=== PATIENT | male | born 1960 | race Caucasian/White ===

== ENCOUNTER 2020-12-26 15:28 | Emergency (ER) | payer MEDICARE, SELFPAY ==
--- NOTE | ~2020-12-26 | US_ITS ---
EXAMINATION: US venous doppler [facility] DATE: 12/26/2020 16:26 INDICATION: Left lower limb pain TECHNIQUE: Nichols scale images without and with compression and Doppler images of the left lower extrem ity veins were obtained. COMPARISON: None FINDINGS: The left common femoral vein, profunda femoral vein, femoral vein, popliteal vein, peroneal trunk, and posterior tibial veins are patent. IMPRESSION: 1. Patent left lower extremity veins. No evidence of deep venous thrombosis. Reviewed, dictated and finalized at location B.
[2020-12-26 15:58] VITALS: BP 169/70; PULSE 83; RESP 16; TEMP 36.3; O2SAT 100
[2020-12-26 20:00] VITALS: BP 170/76; PULSE 95; RESP 16; TEMP 36.6; O2SAT 100
--- NOTE | 2020-12-26 21:22 | ED.LOWEXIN ---
HPI - Extremity Injury (Lower) General Chief Complaint: Extremity Injury, Lower Stated Complaint: Left Leg Circulation Issues Time Seen by Provider: 12/26/20 21:00 History of Present Illness HPI Narrative: 60 yo w/ h/o PAD s/p multiple revascularization procedures and right AKA presents with Leg pain. He reports severe aching pain in the left foot and calf that comes on predictably with activity. It will then begin to radiate into the thigh. This has been going on for weeks. Most recent surgery was in 2014. He has not followed up with his surgeon and does not have a PCP. Related Data Allergies Allergy/AdvReac Type Severity Reaction Status Date / Time No Known Allergies Allergy Unknown Unverified 10/25/18 12:39 Review of Systems Review of Systems: All systems reviewed & are unremarkable except as noted in HPI and below Constitutional: Constitutional: Denies chills and Denies fever(s) ENT: Denies dizziness Cardiovascular: Cardiovascular: Denies chest pain Respiratory: Respiratory: Denies dyspnea Gastrointestinal: Gastrointestinal: Denies abdominal pain Musculoskeletal: Musculoskeletal: Denies back pain Integumentary/Breasts: Skin/Breast: Denies skin ulcer Neurologic: Denies dizziness and Denies numbness PMFSH Past Medical History Medical History (Updated 12/27/20 @ 03:28 by Gaston Angel MD) HTN (hypertension) (07/24/12) Leg pain (01/29/14) Peripheral vascular disease (07/24/12) Surgical History Surgical History (Updated 12/27/20 @ 03:29 by Gaston Angel MD) History of revascularization procedure of lower extremity Social History Social History Smoking status: Former smoker Exam Const: General: no acute distress, alert and ill appearing chronically Nutritional Appearance: thin Orientation/consciousness: patient oriented x3 HENMT: Head: normal to inspection Resp: Effort & Inspection: normal respiratory effort Auscultation: clear to auscultation bilaterally Cardio: Rate: regular rate Rhythm: regular rhythm Other: Faintly palpable left DP. Clear on doppler. GI: GI Palp: Yes Soft to palpation and No Tenderness to palpation present (GI) Skin: Other: Mild discoloration of foot and ankle Neuro: General: patient oriented x3, moves all extremities, no focal motor deficits and CN's II-XI intact bilaterally Speech: normal speech Extrem: Other: Right AKA. Diffuse tenderness without swelling or deformity Course Vital Signs Vital signs: Vital Signs Temperature 36.3 C L 12/26/20 15:58 Pulse Rate 83 12/26/20 15:58 Respiratory Rate 16 12/26/20 15:58 Blood Pressure 169/70 H 12/26/20 15:58 Pulse Oximetry 100 12/26/20 15:58 Temperature 36.6 C 12/26/20 20:00 Pulse Rate 95 12/26/20 20:00 Respiratory Rate 16 12/26/20 20:00 Blood Pressure 170/76 H 12/26/20 20:00 Pulse Oximetry 100 12/26/20 20:00 MDM - Extremity Injury (Lower) MDM Narrative Medical decision making narrative: DDx: Critical ischemia, claudication, cellulitis, DVT, other The foot is warm and has pulses, so this does not seem to be critical ischemia. He does give a history consistent with severe claudication and will need vascular follow-up Medical Records Attestation: I reviewed the patient's medical records. Imaging Data Radiologist's impression: ITS Impressions Venous Doppler Study 12/26/20 16:31 IMPRESSION: 1. Patent left lower extremity veins. No evidence of deep venous thrombosis. Discharge Plan Discharge Clinical Impression: Claudication of right lower extremity Patient Disposition: Home, Self-Care Condition: Stable Instructions: Peripheral Vascular Disease (ED) Additional Instructions: Make an appointment to follow-up with your vascular surgeon Follow-up/Referrals: PHYSICIAN,ROBOTICS SPECIALIST [Primary Care Provider] -
== END 2020-12-26 21:30 | disposition home or self-care (01) ==
PROVIDERS: Emergency Provider Emergency Medicine
DX: I73.9 Peripheral vascular disease, unspecified (principal); Z89.611 Acquired absence of right leg above knee; I10 Essential (primary) hypertension; Z87.891 Personal history of nicotine dependence
CPT/HCPCS: 93971; 99284

== ENCOUNTER 2021-02-23 19:41 | Inpatient (IN) | payer MEDICARE, MEDICAID, SELFPAY ==
--- NOTE | ~2021-02-23 | CT_ITS ---
EXAMINATION: CT abdomen pelvis wo con DATE: 02/23/2021 22:54 INDICATION: Intractable nausea and vomiting. TECHNIQUE: Computed tomography (CT) of the abdomen and pelvis was performed without intravenous contr ast. Automated exposure control and iterative reconstruction technique were employed. The dose-length product was 732.47 mGy-cm. COMPARISON: None FINDINGS: Respiratory motion at the lung bases which limits evaluation of fine pulmonary parenchymal detail. Ca lcified left lower lobe nodule and splenic calcification consistent with old granulomatous disease. S mall region of atelectasis at the left lung base. Heart size is normal. Atherosclerotic coronary sachin ry calcifications and possible coronary artery stenting. Additional prominent motion artifact through out the abdomen and at the proximal thighs also limiting evaluation in these regions. Liver, gallblad bren, pancreas, bilateral adrenal glands and kidneys are normal. Normal appendix. No abnormal bowel wa ll thickening or obstruction. Prominent wall thickening at the bladder which is decompressed around a Garrett catheter. Degree of wall thickening is greater than expected simply due to decompressed state suggests possibility of cystitis either acute or chronic. No free intraperitoneal gas or fluid. There is extensive calcified atherosclerosis of the aorta and many of the other arteries. No pathologicall y enlarged abdominal or pelvic lymphadenopathy. Small fat-containing right inguinal hernia. Mild to m oderate scattered degenerative skeletal changes in the spine and at the bilateral hips. IMPRESSION: 1. Study moderately limited by extensive motion artifact in the lower chest, throughout the abdomen a nd the proximal thighs. 2. Prominent wall thickening in the bladder which is decompressed around a Garrett catheter which could be due to cystitis either acute or chronic. No other acute intra-abdominal/pelvic process identified . Reviewed, dictated and finalized at location A. IMPRESSION: 1. Study moderately limited by extensive motion artifact in the lower chest, th roughout the abdomen and the proximal thighs. 2. Prominent wall thickening in the bladder which is decompressed around a Fole y catheter which could be due to cystitis either acute or chronic. No other acu te intra-abdominal/pelvic process identified.
--- NOTE | ~2021-02-23 | XR_ITS ---
XR chest 1V portable 03/01/2021 05:24 Indication: Pneumonia Procedure: AP portable chest Comparison: Comparison to multiple prior studies sequentially, with oldest reviewed study dated 03/09. Findings: Subtle improving diffuse bilateral airspace disease compared with 02/25/2021. Heart size is normal. There is atherosclerosis. Small pleural effusions. No pneumothorax. Impression: 1: Improving diffuse bilateral airspace disease, consistent with pneumonia. Reviewed, dictated and finalized at location A. Impression: 1: Improving diffuse bilateral airspace disease, consistent with pneumonia.
--- NOTE | ~2021-02-23 | CT_ITS ---
EXAMINATION: CT brain wo con DATE: 02/23/2021 20:34 INDICATION: Altered mental status TECHNIQUE: Computed tomography (CT) of the head was performed without intravenous contrast. Sagittal and coronal reconstructions were performed. The mA was adjusted according to patient size. Iterative reconstruction technique was employed. The dose-length product was 605.33 mGy-cm. COMPARISON: None FINDINGS: Small region of encephalomalacia along the anteroinferior left frontal lobe which could represent seq uela of old infarct or trauma. No acute intracranial hemorrhage, acute infarction or abnormal extra a xial fluid collection. Symmetric prominence of the sulci consistent with mild age-appropriate diffuse cerebral volume loss. Ventricles are normal and symmetric. No mass/mass effect. Intracranial calcifi ed cerebral atherosclerosis is noted. The orbits, paranasal sinuses and mastoid air cells are normal. IMPRESSION: 1. No acute intracranial process. 2. Small region of encephalomalacia in the anteroinferior left frontal lobe which could represent seq uela of old infarct or trauma. Reviewed, dictated and finalized at location A. IMPRESSION: 1. No acute intracranial process. 2. Small region of encephalomalacia in the anteroinferior left frontal lobe whi ch could represent sequela of old infarct or trauma.
--- NOTE | ~2021-02-23 | XR_ITS ---
EXAMINATION: XR chest 1V portable EXAM DATE: 02/25/2021 05:16 INDICATION: Cough. TECHNIQUE: Portable AP frontal chest x-ray was obtained. Comparison is made to prior examination from 02/24/2021. FINDINGS: Significant progression in the now diffuse indistinct reticulation, worsening edema or pneu monia. Please clinically correlate. Small left pleural effusion. The cardiomediastinal silhouette is prominent but magnified on this AP technique. There is no pneumothorax suspected. There is aortic art eriosclerosis. There are bony degenerative changes. IMPRESSION: Progression of now diffuse abnormal edema or pneumonia. Reviewed, dictated and finalized at location A.
--- NOTE | ~2021-02-23 | XR_ITS ---
EXAMINATION: XR chest 1V portable EXAM DATE: 02/24/2021 05:52 INDICATION: New oxygen requirement TECHNIQUE: Portable AP frontal chest x-ray was obtained. Comparison is made to prior examination from 02/23/2021. FINDINGS: There is indistinct reticulation which may indicate pulmonary edema. Surgical changes from left upper lobectomy. No confluent consolidation, pneumothorax or pleural effusion suspected. There i s aortic arteriosclerosis. Mild cardiomegaly. There are no osseous abnormalities identified. IMPRESSION: Indistinct bilateral reticulation, appearance most consistent with mild pulmonary edema. Clinical correlation. Reviewed, dictated and finalized at location A.
--- NOTE | ~2021-02-23 | CT_ITS ---
EXAMINATION: CTA LE LT EXAM DATE: 02/28/2021 18:46 INDICATION: severe peripheral arterial disease. TECHNIQUE: Spiral CTA LE LT was performed following intravenous injection of 100 mL Omnipaque 350. A xial, coronal and sagittal images were reviewed. The dose-length product (DLP) for this examination was 497.55 mGy-cm. The exposure was tailored according to patient size (auto mA exposure control), a nd iterative reconstruction (ASIR) was used as additional dose reduction technique. There is no prio r study for comparison. FINDINGS: The left external iliac artery is normal through the inguinal canal, where there is severe atherosclerosis just proximal to a femoropopliteal bypass. The [place] superficial femoral artery is o ccluded. The bypass graft is patent. Bypass graft connects to popliteal artery which shows short segm ent moderate stenosis just above the tibioperoneal trunk. There is scattered arterial sclerosis of al l 3 calf arteries, but anterior tibial and posterior tibial to have patency to the ankle. There is edema of the left lower extremity subcutaneous fat. No abscess or knee joint effusion. Garrett catheter within the bladder. Bladder wall thickening, could indicate acute or chronic cystitis. Ther e is left inguinal lymphadenopathy, with the largest lymph node measuring 2.2 x 1.2 cm, probably reac tive. IMPRESSION: 1. Patent left SFA stent. 2. Severe short statement stenosis of the common femoral just proximal to graft. 3. Moderate short segment popliteal stenosis. 4. Scattered trifurcation arteriosclerosis with two-vessel runoff (AT, PT). Reviewed, dictated and finalized at location G. IMPRESSION: 1. Patent left SFA stent. 2. Severe short statement stenosis of the common femoral just proximal to rachid t. 3. Moderate short segment popliteal stenosis. 4. Scattered trifurcation arteriosclerosis with two-vessel runoff (AT, PT).
--- NOTE | ~2021-02-23 | US_ITS ---
EXAMINATION: US arterial duplex LE LT EXAM DATE: 02/24/2021 14:22 INDICATION: Peripheral arterial disease. Right leg above knee amputation. TECHNIQUE: Multiple grayscale and Doppler images of the left lower extremity arteries were obtained ( by a technologist who performed the scan) and subsequently reviewed. Comparison is made to prior exam ination from 02/16/2013. FINDINGS: Left inguinal lymph node measuring 2.1 x 2.7 x 0.9 cm, probably reactive. Technologist as documented she believes there to be 2 grafts, one with flow and one without. Visually there is moderate to large amount of arteriosclerotic disease in common femoral artery extending int o proximal aspect of a patent femoral graft. Occluded [place] SFA. High resistance monophasic left com mon femoral artery waveform above the arterial sclerosis. Waveforms from the plaque described above t hroughout the remainder of patent left lower extremity artery are abnormally low resistance with spec tral broadening indicating turbulent flow. Velocities below are reported in cm/second. Common femoral artery 81 cm/s proximally, distally two readings obtained at 114 and 23 cm/s. Deep femoral artery velocities of 55 proximally and 69 mid. Patent femoral graft velocity 136 cm/s proximally (where plaque was present), 27 mid aspect, 25 dista lly. [place] popliteal and posterior tibial arteries occluded. Peroneal proximally 47 mid, distal occluded. Dorsalis pedis 18 Anterior tibial 51. IMPRESSION: Moderate to large amount of left common femoral plaque extending into proximal aspect of patent femoral graft, which is supplying peroneal and anterior tibial arteries. Velocities as above. Reviewed, dictated and finalized at location A. IMPRESSION: Moderate to large amount of left common femoral plaque extending in to proximal aspect of patent femoral graft, which is supplying peroneal and ant erior tibial arteries. Velocities as above.
--- NOTE | ~2021-02-23 | US_ITS ---
EXAMINATION: US venous doppler [facility] EXAM DATE: 02/24/2021 11:37 INDICATION: Left leg swelling. TECHNIQUE: Multiple grayscale, color flow and Doppler images of the left lower extremity deep venous system were obtained and reviewed. Comparison is made to prior examination from 12/26/2020. FINDINGS: The left common femoral, femoral and profunda veins demonstrate normal color flow, respirat ory variation, augmentation and compressibility. Compressibility, color flow confirmed within the le ft popliteal, posterior tibial, and greater saphenous veins. IMPRESSION: 1. No left lower extremity deep venous thrombosis. Reviewed, dictated and finalized at location A.
--- NOTE | ~2021-02-23 | XR_ITS ---
EXAMINATION: XR chest 1V portable DATE: 02/23/2021 22:45 INDICATION: Productive cough. Transient alteration of awareness. TECHNIQUE: frontal view of the chest was obtained. COMPARISON: Chest radiograph dated 03/09/2013 FINDINGS: Again seen are postoperative change of prior left upper lobectomy with volume loss in the left hemith orax, elevation of the left hemidiaphragm and cephalad retraction of the left hilum. Small calcified nodule at the medial left lung base consistent with old granulomatous disease. The cardiomediastinal silhouette is within normal limits for AP technique. Mild thoracic spondylosis. IMPRESSION: 1. No acute cardiopulmonary disease. 2. Status post left upper lobectomy for reported lung cancer. Reviewed, dictated and finalized at location A.
[2021-02-23 19:41] VITALS: BP 163/60; PULSE 112; RESP 23; TEMP 38.3; O2SAT 97
--- NOTE | 2021-02-23 19:48 | ECG_ITS ---
Measurements Intervals [place] Rate: 106 P: 28 IL: 146 QRS: 67 QRSD: 95 T: 82 QT: 374 QTc: 497 Interpretive Statements SINUS TACHYCARDIA ST-T WAVE ABNORMALITY IN ANTEROLAT/INF LEADS- CONSIDER ISCHEMIA BASELINE ARTIFACT- I, II, AVR, AVL, V1, V3-V6 ABNORMAL ECG Electronically Signed On 02-24-2021 6:32:03 CDT by Ruben Bloom D.O.
[2021-02-23 20:29] LABS: Alveolar/Arterial O2 Gradient 55.8 mmHg; Fractional Inspired Oxygen 21 %; HCO3 ABG 21.6 mEq/l (22.0-26.0); Oxygen Content ABG 17.6 %vol (16.0-22.0); Oxyhemoglobin 91.9 % THb (90.0-100.0); PCO2 ABG 27.3 mmHg (35.0-45.0); PO2 ABG 61.2 mmHg (80.0-100.0); PO2 FiO2 Ratio Arterial Blood 2.91 %; Total Hemoglobin 13.6 g/dL (12.0-18.0)
[2021-02-23 20:31] LABS: Add Urine Microscopic? YES; Appearance Urine Cloudy (Clear); Bilirubin Urine Negative (Negative); Blood Urine 3+ (Negative); Color Urine Yellow (Yellow); Glucose Urine UA Negative (Negative); Ketones Urine 1+ mg/dL (Negative); Leukocyte Esterase Ur Trace LEU/UL (Negative); Mucus Urine Rare /lpf; Nitrate Urine Negative (Negative); Protein Urine 2+ mg/dL (Negative); RBC Urine 0-2 /hpf (0-2); Specific Grav Ur 1.011 (1.001-1.035); Squamous Epithelial Cell Urine Rare /hpf (Few); WBC Urine 16-20 /hpf
[2021-02-23 20:32] LABS: pH ABG 7.516 (7.350-7.450)
[2021-02-23 20:33] LABS: Device ROOM AIR; Modified Allen's Test Pass; Site Drawn RIGHT RADIAL
[2021-02-23 20:52] VITALS: BP 122/88; PULSE 108; RESP 25; O2SAT 98
[2021-02-23 21:00] VITALS: BP 122/88; PULSE 118; RESP 22; O2SAT 98
[2021-02-23 21:07] LABS: Hematocrit 33.6 % (42.0-52.0); Hemoglobin 12.7 g/dL (14.0-18.0); Mean Corpuscular HGB Conc 37.8 g/dl (32-36); Mean Corpuscular Hemoglobin 35.1 pg (26-34); Mean Corpuscular Volume 92.8 fl (80-100); Mean Platelet Volume 10.8 fl (7.4-10.4); Platelet Count Result 255 k/mm3 (150-375); Red Blood Count 3.62 M/mm3 (4.6-6.20); Red Cell Distribution Width 11.3 % (11.5-14.5); White Blood Count 27.1 K/mm3 (4.5-10.0)
--- NOTE | 2021-02-23 21:16 | PC.NURSE ---
Updated pt family person to notify
[2021-02-23 21:18] LABS: INR 1.2; Prothrombin Time 16.1 Seconds (11.1-14.7)
[2021-02-23 21:20] LABS: Lactic Acid Reflex 1.5 mmol/L (0.7-2.1)
[2021-02-23 21:21] LABS: Ethanol < 10 mg/dL (<10)
[2021-02-23 21:23] LABS: Alanine Aminotransferase 61 U/L (4-50); Albumin Level 3.5 g/dL (3.5-5.1); Alkaline Phosphatase 131 U/L (38-126); Anion Gap 9 mmol/L (8-16); Aspartate Amino Transferase 381 U/L (17-59); Bilirubin,Total 1.8 mg/dL (0.2-1.3); Blood Urea Nitrogen 6 mg/dL (9-20); Calcium 8.1 mg/dL (8.4-10.2); Carbon Dioxide 24 mmol/L (22-30); Chloride 75 mmol/L (98-107); Estimated CRCL calculation 121 ml/min; Estimated Glomerular Filt Rate > 60; Glucose 97 mg/dL (75-110); Potassium 4.8 mmol/L (3.4-5.0); Sodium 108 mmol/L (137-145)
[2021-02-23 21:25] LABS: Band Neutrophils Percent 10 % (0-6); Lymphocytes Absolute Manual 0.54 K/mm3 (1.1-4.5); Monocytes Absolute Manual 2.43 K/mm3 (0.1-0.90); Monocytes Percent Manual 9 % (3-9); Neutrophils Absolute Manual 24.11 K/mm3 (1.3-6.7); Neutrophils Percent Manual 79 % (46-73); Platelet Estimate Adequate (Adequate); Total Cells Counted 100
[2021-02-23 21:33] LABS: Troponin I 0.017 ng/mL (0.000-0.034)
[2021-02-23 21:57] VITALS: BP 141/99; PULSE 114; RESP 18; O2SAT 99
--- NOTE | 2021-02-23 22:17 | PM.IMHP ---
H&P: HPI History of Present Illness Date/Time: 02/23/21 22:17 Chief Complaint: ALTERED MENTAL STATUS Narrative: This is a 60-year-old male with past medical history significant for peripheral arterial disease he is status post right lower extremity above the knee amputation, patient drinks 15 beers a day according to nephew who is at bedside, patient is unable to give any history as he is delirious, thrashing about. Most of the history is obtained by his nephew who is very close to him and comes to check on him a most every day according to his nephew he had been doing his usual today when he went to check on him he found him slumped over sitting in his wheelchair and the house was in disarray he was covered in vomit as well. As per nephew he had not complaining about any issues he is a very active person he is able to go to his roof top and set up his [place] light all by himself. Preliminary workup was significant for a sodium of 108, WBC 27,000. A CT of abdomen and pelvis was pretty much unremarkable as well as a chest x-ray that shows left upper lobe lobectomy. According to nephew patient has been having nausea and vomiting for quite some time now in spite of eating small meals it has become a habit to throw up prior to going to bed every night and this has been happening for quite some time now. Review of Systems Review of Systems: ROS unobtainable: Yes unobtainable due to medical condition (Delirious) PMFSH Past Medical History Medical History HTN (hypertension) (07/24/12) Leg pain (01/29/14) Peripheral vascular disease (07/24/12) Surgical History Surgical History History of revascularization procedure of lower extremity Social History Social History Smoking status: Unknown if ever smoked Meds Home Medications and Allergies Home Medications Medication Instructions Recorded Confirmed Type Unable to Obtain Home Medications 02/24/21 02/24/21 History Allergies Allergy/AdvReac Type Severity Reaction Status Date / Time No Known Allergies Allergy Unknown Unverified 02/09/19 12:39 Vital Signs Vital Signs - 24 hr 02/23/21 19:41 02/23/21 21:00 Temperature 100.9 F H Pulse Rate 112 H 118 H Respiratory Rate 23 H 22 H Blood Pressure 163/60 H 122/88 Pulse Oximetry 97 98 Exam Narrative: Exam Narrative: Delirious and thrashing about in [facility]. Const: General: no acute distress, well developed, awake, Physically active, ill appearing and other (Delirious) Nutritional Appearance: thin Orientation/consciousness: Other orientation findings (Delirious) Limitations: altered mental status HENMT: Head: normal to inspection, normocephalic and atraumatic Ears: hearing grossly normal bilaterally General nose exam: Normal external nose present Face and sinus: normal facial exam Eyes: General: appearance normal, both eyes and all related structures Sclera: sclerae normal Pupils: Equal, round and reactive pupils present EOM: EOMs intact bilaterally Neck: Neck: no lymphadenopathy, supple and no JVD Resp: Effort & Inspection: normal respiratory effort Auscultation: clear to auscultation bilaterally, no crackles, no rales, no rhonchi and no wheezes Cardio: Jugular venous distension: no JVD Rate: regular rate Rhythm: regular rhythm Heart sounds: S1 normal heart sound present and S2 normal heart sound present GI: Inspection: normal to inspection GI Palp: Yes Soft to palpation, No Firmness to palpation present (GI), No Tenderness to palpation present (GI), No Guarding due to palpation present (GI) and Yes No hepatosplenomegaly present Rectal Exam: deferred : General: Yes deferred Urinary Catheter: Urinary Catheter: patent and draining Skin: General skin exam: normal color, erythema and other (Left lower extremity cellulitis and skin slough of at the
--- NOTE | 2021-02-23 22:35 | ED.GENADULT ---
HPI - General Adult General Chief complaint: Weakness Stated complaint: non verbal, awake Time Seen by Provider: 02/23/21 19:50 Source: family Mode of arrival: EMS Limitations: altered mental status History of Present Illness HPI narrative: 60-year-old with a history of peripheral vascular disease s/p right BKA, hypertension, alcoholism was brought in ambulance from home . As per the EMS and family patient was found slumped over on the wheelchair covered in stool in urine. Patient lives lives by himself usually is a very clean and alert person as per the nephew who is at bedside. Was surprised to see him in the state this afternoon. He was unable to answer questions but then later called 911 and was brought to the ER. He also mentions that he drinks about 10 to 12 cans of beer a day. As per interview has no history of fever or chills. Patient has not followed up with any vascular surgeon since the time of surgery. Onset (ago): day(s) (1) Related Data Allergies Allergy/AdvReac Type Severity Reaction Status Date / Time No Known Allergies Allergy Unknown Unverified 10/25/18 12:39 Review of Systems Review of Systems: ROS unobtainable: Yes unobtainable due to medical condition PMFSH Past Medical History Medical History HTN (hypertension) (07/24/12) Leg pain (01/29/14) Peripheral vascular disease (07/24/12) Surgical History Surgical History History of revascularization procedure of lower extremity Social History Social History Smoking status: Former smoker Exam Narrative: Exam Narrative: GENERAL: ill -appearing, well-nourished, agitated, and in feces and urine. HEAD: Normocephalic, atraumatic. EYES: PERRLA and EOMI. ENT: Nares clear, Mucous membranes moist. NECK: Supple. CHEST: Clear to auscultation. No respiratory distress. HEART: Regular rate and rhythm. No murmur heard. Normal peripheral pulses. ABDOMEN: Soft, nontender, nondistended, normal active bowel sounds. EXTREMITIES: BKA right left leg has a hematoma on the lateral aspect of the lower leg, cellulitic changes noted on the dorsum of the foot and interphalangeal area SKIN: Warm, dry, NEURO: No focal deficits. Alert . . Course Course Emergency Course: Most of the history was obtained from the nephew was at the bedside , I discussed lab work, CT findings with the patient. Also discussed with Dr. Xavier who recommended hypertonic saline 60 cc an hour for 3 hours and recheck his sodium levels. Discussed with Dr. Garcia and Dr Kapil Devlin Vital Signs Vital signs: Vital Signs Temperature 38.3 C H 02/23/21 19:41 Pulse Rate 112 H 02/23/21 19:41 Respiratory Rate 23 H 02/23/21 19:41 Blood Pressure 163/60 H 02/23/21 19:41 Pulse Oximetry 97 02/23/21 19:41 Temperature 38.3 C H 02/23/21 19:41 Pulse Rate 118 H 02/23/21 21:00 Respiratory Rate 22 H 02/23/21 21:00 Blood Pressure 122/88 02/23/21 21:00 Pulse Oximetry 98 02/23/21 21:00 Medical Decision Making Vital Signs Vital Signs: Vital Signs Temperature 38.3 C H 02/23/21 19:41 Pulse Rate 112 H 02/23/21 19:41 Respiratory Rate 23 H 02/23/21 19:41 Blood Pressure 163/60 H 02/23/21 19:41 Pulse Oximetry 97 02/23/21 19:41 Temperature 38.3 C H 02/23/21 19:41 Pulse Rate 118 H 02/23/21 21:00 Respiratory Rate 22 H 02/23/21 21:00 Blood Pressure 122/88 02/23/21 21:00 Pulse Oximetry 98 02/23/21 21:00 Lab Data Result diagrams: 02/23/21 20:51 02/23/21 20:52 Labs: Lab Results 02/23/21 02/23/21 02/23/21 Range/Units 20:20 20:51 20:51 WBC 27.1 H (4.5-10.0) K/mm3 RBC 3.62 L (4.6-6.20) M/mm3 Hgb 12.7 L (14.0-18.0) g/dL Hct 33.6 L (42.0-52.0) % MCV 92.8 (80-100) fl MCH 35.1 H (26-34) pg MCHC 37.8 H (32-36) g/dl RDW 11.3 L (11.5-14.
--- NOTE | 2021-02-23 22:40 | PC.NURSE ---
Pt to imaging at this time
[2021-02-23] MEDS: SODIUM CHLORIDE 3% 500 ML 60 ML IV CONT (23:05)
--- NOTE | 2021-02-23 23:26 | PC.NURSE ---
Called pharmacy about tubing up vancomycin. Antibiotic to come to unit at this time.
[2021-02-23 23:45] VITALS: BP 132/95; PULSE 110; RESP 18; O2SAT 99
--- NOTE | 2021-02-23 23:51 | PC.NURSE ---
Unable to get Hypertonic solution to run over pump. Contacted several nurses to aid in troubleshooting. Pumps and tubing changed, still unable to get solution through. Charge nurse notified at this time to attempt troubleshooting further. Pt continues to become agitated with staff interaction.
[2021-02-24] VITALS (15 sets, daily range): BP systolic 90–120; BP diastolic 55–92; PULSE 94–140; RESP 23–35; TEMP 37.1–37.7; O2SAT 90–99
--- NOTE | 2021-02-24 00:50 | PC.NURSE ---
Pt pulled out left IV in forearm. Cannula intact. Site covered in coban.
--- NOTE | 2021-02-24 01:04 | PC.NURSE ---
This patient, Jack De Oliveira, was admitted to Intensive Care Unit-10. Patient/family oriented to hospital policies and general routines including ID bracelet, bed and alarms, visiting hours, pain management, procedures, bathroom and other care routines, personal items, smoking policy, room service/diet, and visiting hours. Information on how to activate the Rapid Response Team has been discussed. Patient/Family are encouraged to report perceived risks to care and to ask questions if they do not understand what they are told or what they should do.
--- NOTE | 2021-02-24 01:12 | PC.NURSE ---
Received pt from ED with RN updated that pt had self removed IV in transit. Pt arrives very agitated and grabbing at staff and attempting to remove other IV and soliman.
[2021-02-24] MEDS: THIAMINE HCL INJ 100 MG, FOLIC ACID INJ 1 MG, MULTIVITAMINS-12 INJ VIAL 1 5 ML, MULTIVI... IV CONT (01:38)
[2021-02-24] MEDS: HALOPERIDOL LACTATE 5 MG/ML VIAL IV PUSH (01:38)
[2021-02-24] MEDS: PIPERACILLIN/TAZOBACTAM SOD 3.375 GM in SODIUM CHLORIDE 0.9% IV 50 ML IVPB (01:39)
--- NOTE | 2021-02-24 02:14 | PC.NURSE ---
Attempted to will call order clerk of contact Yuni Callaway at [phone] and was not able to reach her. Unable to leave message as mailbox if full. Will attempt later in morning.
[2021-02-24] MEDS: LORazepam INJ (*CRX) 2 MG/ML VIAL IV PUSH ×3 (02:26→11:40)
--- NOTE | 2021-02-24 02:28 | PC.NURSE ---
Dtr in law Yuni returned RN call, but unsure of medical hx. Given pt son Faviola information. Called Aldo's number and was unable to reach him. Unable to leave message as mail box is full as well.
[2021-02-24 02:52] LABS: Hematocrit 33.6 % (42.0-52.0); Hemoglobin 12.4 g/dL (14.0-18.0); Mean Corpuscular HGB Conc 36.9 g/dl (32-36); Mean Corpuscular Hemoglobin 34.7 pg (26-34); Mean Corpuscular Volume 94.1 fl (80-100); Mean Platelet Volume 10.4 fl (7.4-10.4); Platelet Count Result 237 k/mm3 (150-375); Red Blood Count 3.57 M/mm3 (4.6-6.20); Red Cell Distribution Width 11.3 % (11.5-14.5); White Blood Count 24.3 K/mm3 (4.5-10.0)
[2021-02-24 03:06] LABS: Anion Gap 10 mmol/L (8-16); Blood Urea Nitrogen 6 mg/dL (9-20); Calcium 7.8 mg/dL (8.4-10.2); Carbon Dioxide 23 mmol/L (22-30); Chloride 79 mmol/L (98-107); Estimated CRCL calculation 117 ml/min; Estimated Glomerular Filt Rate > 60; Glucose 95 mg/dL (75-110); Potassium 4.1 mmol/L (3.4-5.0); Sodium 112 mmol/L (137-145)
--- NOTE | 2021-02-24 03:42 | PCRCNOTE ---
Window of time for administration has passed. See next scheduled administration. Patient unable to do at this time.
[2021-02-24 04:01] LABS: Band Neutrophils Percent 9 % (0-6); Lymphocytes Absolute Manual 1.21 K/mm3 (1.1-4.5); Monocytes Percent Manual 7 % (3-9); Neutrophils Absolute Manual 21.38 K/mm3 (1.3-6.7); Neutrophils Percent Manual 79 % (46-73); Platelet Estimate Adequate (Adequate); Total Cells Counted 100
--- NOTE | 2021-02-24 05:25 | PC.NURSE ---
Lung sounds worsened since admission to unit. Pt has loose cough but non productive thus far. CXR obtained for concerns of aspiration.
--- NOTE | 2021-02-24 07:05 | PC.NURSE ---
Pt son returned call at [phone]. Confirms that pt is non compliant with medications and has not been taking any that he is aware of. Pt medical hx confirmed, but pt has not seen a doctor in some time. Discussed code status and son confirms pt is a full code with approval for intubation if it should arise.
--- NOTE | 2021-02-24 07:30 | PM.CNNEP ---
Assessment and Plan Assessment and plan (1) Hyponatremia: Code(s): E87.1 - Hypo-osmolality and hyponatremia Status: Acute Assessment and Plan: sodium level is very low. This could be related to his illness with the nausea and vomiting. This could also be beer drinkers potomania. His urinalysis shows a specific gravity of 1.010 which makes this a little bit less likely as usually they have hypotonic urine. The patient is on some medications at home. We do not have a list however. Meds can do this such as narcotics, antidepressants, and diuretics such as hydrochlorothiazide. The patient had a left upper lobectomy apparently according to his chest x-ray. If this was canceled them possibly recurrent cancer could do this. Pulmonary issues could do this as well. His chest x-ray did show signs consistent with pulmonary edema. will check a BNP and an echo. Patient could have brain issues as well causing the hyponatremia. CT of the head without contrast was negative, however so a space-occupying lesion has been ruled out for the most part. The patient received 3% saline last night. Sodium level was 112. We want to limit correction of the sodium to 8 or less per day. The patient has an 8:00 a.m. Sodium that is going to be drawn and the nurses will call me that with that result. Will have to watch closely for a spontaneous diuresis, especially if this is due to a medication which he is not taking currently or if this is due to beer drinkers potomania. The mental status was felt to possibly dbe due to this sodium last night in the emergency room. However he is not changed with the correction of sodium from 108-112 and so I think this is unlikely. He does have cellulitis and sepsis which is more likely the cause. Consider neuro consultation. (2) Cellulitis of left lower extremity: Code(s): L03.116 - Cellulitis of left lower limb Status: Acute Assessment and Plan: The patient is getting antibiotics. Cultures have been drawn. (3) Intractable nausea and vomiting: Code(s): R11.2 - Nausea with vomiting, unspecified Status: Acute Assessment and Plan: The patient has coarse breath sounds. Possibly he aspirated. (4) Alcohol dependence: Code(s): F10.20 - Alcohol dependence, uncomplicated Status: Acute Assessment and Plan: The patient is getting thiamin (5) Sepsis: Code(s): A41.9 - Sepsis, unspecified organism Status: Acute Assessment and Plan: the patient is on antibiotics (6) Altered mental status: Qualifiers: Altered mental status type: disorientation Qualified Code(s): R41.0 - Disorientation, unspecified Code(s): R41.82 - Altered mental status, unspecified Status: Acute Assessment and Plan: possibly due to sepsis. (7) SIRS (systemic inflammatory response syndrome): Code(s): R65.10 - Systemic inflammatory response syndrome (SIRS) of non-infectious origin without acute organ dysfunction Status: Acute Assessment and Plan: Lactic acid is okay (8) Peripheral vascular disease: Onset Date: 07/24/12 Code(s): I73.9 - Peripheral vascular disease, unspecified Status: Acute Assessment and Plan: status post right [id number] amputation History of Present Illness Reason for Consult Consult date: 02/24/21 Chief Complaint Chief complaint: Hyponatremia, Altered Mental Status, SIRS History of Present Illness Narrative: Benjamin is an unfortunate 60-year-old gentleman who has multiple medical problems including chronic alcoholism, hypertension, for vascular disease status post right [id number] amputation, the patient was found by the family unresponsive. They called 911 and had him brought over to the emergency room. In the ER he was found to have a sodium of 109. He was unresponsive. This was felt to be due to this low sodium so he w
--- NOTE | 2021-02-24 07:45 | ECHO_ITS ---
Patient Info Name: Jack De Oliveira Age: 60 years : 1960 Gender: Male Ht: 68 in Wt: 145 lbs BSA: 1.78 m2 HR: 116 bpm BP: 104 / 55 mmHg Technical Quality: Good Exam Date: 02/24/2021 9:11 AM Exam Location: [facility] Patient Status: Inpatient Admit Date: 02/23/2021 Staff Ordering Physician: Benedicto Xavier MD Wood Preparation Supervisor: Tulio Finnegan RDCS, RT Attending Provider: Ashok Devlin MD Referring Physician: Duc FAULKNER; Exam Type: CA echo doppler color flow Study Info Indications J81.0 - Acute pulmonary edema Complete two-dimensional, color flow and Doppler transthoracic echocardiogram is performed. Strain analysis performed. Summary 1. Complete two-dimensional, color flow and Doppler transthoracic echocardiogram is performed. 2. Left ventricular chamber dimension is normal. 3. Left ventricular systolic function is normal, estimated at 60-65%. 4. There is mildly increased left ventricular wall thickness. 5. The left ventricular diastolic function is normal. 6. E/e '7 is not elevated. 7. Global longitudinal strain is abnormal at -13.2%. 8. Left atrial chamber dimension is moderately enlarged. 9. There is moderate aortic valve sclerosis. 10. There is mild aortic valve stenosis with a peak velocity of 150 cm/s, mean gradient of 4 mmHg, and aortic valve area of 1.9 cm2. 11. There is mild mitral valve regurgitation. 12. There is moderate tricuspid valve regurgitation. 13. Severe pulmonary hypertension, estimated pulmonary arterial systolic pressure is 75 mmHg. 14. There is trace pulmonic regurgitation. Left Ventricle E/e '7 is not elevated. Global longitudinal strain is abnormal at -13.2%. Left ventricular chamber dimension is normal. Left ventricular systolic function is normal, estimated at 60-65%. There is mildly increased left ventricular wall thickness. The left ventricular diastolic function is normal. Right Ventricle Right ventricular systolic function is normal and with normal TAPSE 2.3 cm. Right ventricular chamber dimension is normal. Left Atria Left atrial chamber dimension is moderately enlarged. Right Atria Right atrial chamber dimension is normal. Aortic Valve The aortic valve is trileaflet. There is moderate aortic valve sclerosis. There is mild aortic valve stenosis with a peak velocity of 150 cm/s, mean gradient of 4 mmHg, and aortic valve area of 1.9 cm2. There is no aortic valve regurgitation. Pulmonic Valve There is trace pulmonic regurgitation. Mitral Valve There is no mitral valve stenosis. There is mild mitral valve regurgitation. Tricuspid Valve There is moderate tricuspid valve regurgitation. Severe pulmonary hypertension, estimated pulmonary arterial systolic pressure is 75 mmHg. Pericardium/Pleural There is no pericardial effusion. Inferior Vena Cava Normal inferior vena cava with >50% collapse upon inspiration consistent with normal right atrial pressure, 5 mmHg. Aorta The aortic root size at the sinus of Valsalva is normal. Left Ventricular Outflow Tract Name Value Normal LVOT 2D LVOT Diameter 2.0 cm LVOT Doppler LVOT
[2021-02-24 08:36] LABS: Anion Gap 6 mmol/L (8-16); Blood Urea Nitrogen 5 mg/dL (9-20); Calcium 7.6 mg/dL (8.4-10.2); Carbon Dioxide 25 mmol/L (22-30); Chloride 80 mmol/L (98-107); Estimated CRCL calculation 146 ml/min; Estimated Glomerular Filt Rate > 60; Glucose 90 mg/dL (75-110); Potassium 3.5 mmol/L (3.4-5.0); Sodium 111 mmol/L (137-145)
[2021-02-24 09:30] LABS: NT Pro B Type Natriuretic Pept 8290 pg/mL (5-100)
--- NOTE | 2021-02-24 09:47 | PM.IMPN ---
Progress Note: A&P Assessment and Plan (1) Sepsis: Code(s): A41.9 - Sepsis, unspecified organism Status: Acute Assessment and Plan: Present on admission with tachycardia, tachypnea and leukocytosis. UA noted. BCx and UCx collected. CXR clear but repeat showing bilateral reticulation. CT of abdomen and pelvis showing thickened bladder. Source likely to be left lower extremity cellulitis vs bacteremia vs UTI. Consider also developing aspiration PNA. Elevate HOB. COntineu IV abx. Change to Unasyn to prevent renal disease. (2) Acute hyponatremia: Code(s): E87.1 - Hypo-osmolality and hyponatremia Status: Acute Assessment and Plan: Na 108 on admission. Patient drinks roughly 15 beers a day but also has been having nausea and vomiting daily. TSH normal but Cortisol level elevated probably from stress response. Consider beer potomania vs dehydration. Chloride is low but potassium normal. Suspect mainly due to GI losses. He received 6hours of 3% NS and Na climbed to 112. IV fluids stopped. Nephrology following and managing the hyponatremia. Good UOP. Serial BMPs ordered. Cautiously normalize sodium no more than 6 mEq daily. (3) Cellulitis of left lower extremity: Code(s): L03.116 - Cellulitis of left lower limb Status: Acute Assessment and Plan: Patient with possibly cellulitis to the LLE but consider ischemia as well. LA normal. Venous Doppler of left lower extremity ordered and is pending. MRI and MRA of the LLE also ordered but patient unable to have this procedure at this time. Will plan to check arterial doppler if venous doppler normal. Wound care consult. Continue IV abx. (4) Altered mental status: Qualifiers: Altered mental status type: disorientation Qualified Code(s): R41.0 - Disorientation, unspecified Code(s): R41.82 - Altered mental status, unspecified Status: Acute Assessment and Plan: CT brain showing old encephalomalacia but no acute findings. Acute metabolic encephalopathy likely secondary to severe hyponatremia. Can not exclude related to sepsis but felt less likely. As above. Monitor closely as Na improves. Continue supportive care. (5) Peripheral vascular disease: Onset Date: 07/24/12 Code(s): I73.9 - Peripheral vascular disease, unspecified Status: Acute Assessment and Plan: Pateitn is status post right AKA. Evaluation as above. Echo ordered as well. Fall precautions when he is up. PT/OT when he improves. Follow up on Echo results. (6) Alcohol dependence: Code(s): F10.20 - Alcohol dependence, uncomplicated Status: Acute Assessment and Plan: Patient drinks roughly 15 beers a day. Thiamine and Folate started. Monitor for withdrawal symnptoms with CIWA protocol. Ativan available prn for withdrawal symptoms. (7) Intractable nausea and vomiting: Code(s): R11.2 - Nausea with vomiting, unspecified Status: Acute Assessment and Plan: CT of abdomen and pelvis reviewed showing only thickened bladder. Etiology unclear. Keep NPO until more awake and alert. May need NGT for TF. (8) DVT prophylaxis: Code(s): Z29.9 - Encounter for prophylactic measures, unspecified Status: Acute Assessment and Plan: Lovenox Subjective Date/time seen: 02/24/21 09:47 Interval history: 60yo male with PAD s/p right AKA, alcoholism and HTN here for altered mental status and found to have a sodium of 108 and evidence of sepsis from left leg cellulitis. Patient is confused and unable to provide hx. Staff able to doppler left foot pulse. Received 3% saline in the ED and Na climbed to 112 but currently off IV fluids. Review of Systems Review of Systems: ROS unobtainable: Yes unobtainable due to mental status Exam Narrative: Exam Narrative: Tm 100.9 99.8 104/55 118 35 94% 2L Gen -audible coarse breat
--- NOTE | 2021-02-24 09:52 | ECG_ITS ---
Measurements Intervals Lyme Rate: 95 P: KS: 0 QRS: 57 QRSD: 107 T: 80 QT: 404 QTc: 510 Interpretive Statements SINUS OR ECTOPIC ATRIAL RHYTHM BORDERLINE ST-T WAVE ABNORMALITY- ANTEROLATERAL LEADS BASELINE ARTIFACT- I, II, AVR, AVL, AVF, V1-V6 BORDERLINE ECG Electronically Signed On 02-24-2021 12:31:48 CDT by Ruben Bloom D.O.
[2021-02-24] MEDS: METOPROLOL TARTRATE INJ 5 MG/5 ML VIAL 2.5 MG IV PUSH (09:53)
[2021-02-24] MEDS: ENOXAPARIN 40 MG/0.4 ML SYRINGE SUB-Q (10:51)
--- NOTE | 2021-02-24 11:11 | WPDCNINT ---
Assessment and Plan Assessment and plan (1) Sepsis: Code(s): A41.9 - Sepsis, unspecified organism Status: Acute Assessment and Plan: Secondary to cellulitis and/or pneumonia, cystitis/UTI Blood cultures Patient on empiric vancomycin and Unasyn Lactate was normal (2) Cellulitis of left lower extremity: Code(s): L03.116 - Cellulitis of left lower limb Status: Acute Assessment and Plan: Continue vancomycin and Unasyn Blood cultures ordered Arterial Doppler (3) Hyponatremia: Code(s): E87.1 - Hypo-osmolality and hyponatremia Status: Acute Assessment and Plan: Hyponatremia could be beer potomania versus dehydration Renal function is normal Nephrology was consulted overnight and patient was started on 3% saline. Sodium increased [id number] to 112 and 3% saline was stopped. Serial sodium monitoring his ordered an nephrology is managing at this time. Will defer management to Nephrology Seizure precaution (4) Altered mental status: Qualifiers: Altered mental status type: disorientation Qualified Code(s): R41.0 - Disorientation, unspecified Code(s): R41.82 - Altered mental status, unspecified Status: Acute Assessment and Plan: Multifactorial Head CT was negative Correct sodium slowly Thiamine and folic acid Check ammonia Normal TSH (5) Peripheral vascular disease: Onset Date: 07/24/12 Code(s): I73.9 - Peripheral vascular disease, unspecified Status: Acute (6) Edema: Code(s): R60.9 - Edema, unspecified Status: Acute Assessment and Plan: Lower extremity Dopplers are ordered Could be secondary to right heart failure from severe pulmonary hypertension BNP was 8290 Cautious IV fluids (7) Alcohol abuse: Code(s): F10.10 - Alcohol abuse, uncomplicated Status: Acute Assessment and Plan: Thiamine and folic acid (8) Pneumonia: Code(s): J18.9 - Pneumonia, unspecified organism Status: Acute Assessment and Plan: Could be aspiration Cultures Patient is on Unasyn (9) UTI (urinary tract infection): Code(s): N39.0 - Urinary tract infection, site not specified Status: Acute Additional Plan DVT prophylaxis -start Lovenox Nutrition -NPO at this time Code Status - Full Code I spoke to patient's [id number]-[id number] Yuni who is listed as person to notify the chart. She has not seen the patient for last 1 year. Patient has 3 children, Miquel live in [place], Aldo who is Nikky' also doesn't see Jack frequently. Pt's daughter is the closest and Yuni will try to obtain her contact information and call us back. Aldo plans to visit pt today and I will discuss with him when he gets here. Total Critical Care Time - 40 minutes Due to a high probability of clinically significant, life threatening deterioration, the patient required my highest level of preparedness to intervene emergently and I personally spent this critical care time directly and personally managing the patient. This critical care time included obtaining a history; examining the patient; pulse oximetry; ordering and review of studies; arranging urgent treatment with development of a management plan; evaluation of patient's response to treatment; frequent reassessment; and discussions with other providers. It was exclusive of separately billable procedures and treating other patients and teaching time. Please see Assessment and Plan section and the rest of the note for further information on patient assessment and treatment Acoustical Logging Engineer Consult Note Consult date: 02/24/21 Time Seen: 09:00 HPI: Jack De Oliveira is a 60 year old male with past medical history significant for peripheral arterial disease who is status post right lower extremity AKA and heavy alcohol abuse was brought yesterday to ER with chief complaint of altered mental status. Patient drinks 15 beers a day according to martin
[2021-02-24] MEDS: THIAMINE HCL 200 MG/2 ML VIAL 100 MG IV PUSH (11:29)
[2021-02-24] MEDS: AMPICILLIN SULB 3 GM/NS 100 ML 3 GM/100 ML VIAL IVPB ×2 (11:29→17:21)
[2021-02-24] MEDS: FOLIC ACID 1 MG/0.2 ML INJ IV PUSH (11:29)
[2021-02-24] MEDS: ONDANSETRON INJ 4 MG/2 ML VIAL IV PUSH (11:40)
[2021-02-24 12:14] LABS: Ammonia < 9 umol/L (9-30); Potassium 3.2 mmol/L (3.4-5.0)
[2021-02-24 12:26] LABS: Anion Gap 7 mmol/L (8-16); Blood Urea Nitrogen 5 mg/dL (9-20); Calcium 7.5 mg/dL (8.4-10.2); Carbon Dioxide 25 mmol/L (22-30); Chloride 81 mmol/L (98-107); Estimated CRCL calculation 146 ml/min; Estimated Glomerular Filt Rate > 60; Glucose 84 mg/dL (75-110); Sodium 113 mmol/L (137-145)
[2021-02-24] MEDS: POTASSIUM CHLORIDE INJ 40 MEQ in SODIUM CHLORIDE 0.9% IV 500 ML 130 MEQ IVPB (13:15)
[2021-02-24 13:53] LABS: Amphetamine Screen Urine Negative (Negative); Barbiturate Screen Urine Negative (Negative); Benzodiazepines Screen Urine Negative (Negative); Cannabinoid Screen Urine Positive (Negative); Cocaine Screen Urine Negative (Negative); Methadone Screen Urine Negative (Negative); Opiate Screen Urine Negative (Negative); Phencyclidine Screen Urine Negative (Negative)
[2021-02-24 14:41] LABS: Lactic Acid Reflex 1.8 mmol/L (0.7-2.1)
[2021-02-24 16:47] LABS: Anion Gap 7 mmol/L (8-16); Blood Urea Nitrogen 5 mg/dL (9-20); Carbon Dioxide 28 mmol/L (22-30); Chloride 82 mmol/L (98-107); Estimated CRCL calculation 120 ml/min; Estimated Glomerular Filt Rate > 60; Glucose 73 mg/dL (75-110); Potassium 3.5 mmol/L (3.4-5.0); Sodium 117 mmol/L (137-145)
[2021-02-24] MEDS: DESMOPRESSIN ACETATE 4 MCG/ML AMP 1 MCG SUB-Q (17:26)
[2021-02-24] MEDS: DEXTROSE 5% IN WATER 500 ML 180 ML IV CONT ×2 (17:28→21:09)
[2021-02-24 20:12] LABS: Anion Gap 8 mmol/L (8-16); Blood Urea Nitrogen 4 mg/dL (9-20); Carbon Dioxide 27 mmol/L (22-30); Chloride 82 mmol/L (98-107); Estimated CRCL calculation 146 ml/min; Estimated Glomerular Filt Rate > 60; Glucose 95 mg/dL (75-110); Potassium 3.4 mmol/L (3.4-5.0); Sodium 117 mmol/L (137-145)
[2021-02-24] MEDS: DESMOPRESSIN ACETATE 4 MCG/ML AMP 1 MCG IV PUSH (21:10)
[2021-02-24 23:52] LABS: Anion Gap 5 mmol/L (8-16); Blood Urea Nitrogen 4 mg/dL (9-20); Calcium 7.8 mg/dL (8.4-10.2); Carbon Dioxide 28 mmol/L (22-30); Chloride 82 mmol/L (98-107); Estimated CRCL calculation 146 ml/min; Estimated Glomerular Filt Rate > 60; Glucose 109 mg/dL (75-110); Potassium 3.1 mmol/L (3.4-5.0); Sodium 115 mmol/L (137-145)
[2021-02-25] VITALS (19 sets, daily range): BP systolic 90–157; BP diastolic 58–85; PULSE 90–120; RESP 17–25; TEMP 36.8–37.4; O2SAT 94–99
[2021-02-25] MEDS: AMPICILLIN SULB 3 GM/NS 100 ML 3 GM/100 ML VIAL IVPB ×5 (00:55→23:52)
[2021-02-25 05:02] LABS: Hematocrit 39.4 % (42.0-52.0); Mean Corpuscular HGB Conc 35.5 g/dl (32-36); Mean Corpuscular Hemoglobin 34.7 pg (26-34); Mean Corpuscular Volume 97.5 fl (80-100); Mean Platelet Volume 11.3 fl (7.4-10.4); Platelet Count Result 223 k/mm3 (150-375); Red Blood Count 4.04 M/mm3 (4.6-6.20); Red Cell Distribution Width 11.7 % (11.5-14.5); White Blood Count 22.4 K/mm3 (4.5-10.0)
[2021-02-25 05:12] LABS: Alanine Aminotransferase 70 U/L (4-50); Albumin Level 3.2 g/dL (3.5-5.1); Alkaline Phosphatase 118 U/L (38-126); Anion Gap 8 mmol/L (8-16); Aspartate Amino Transferase 228 U/L (17-59); Bilirubin,Total 1.7 mg/dL (0.2-1.3); Blood Urea Nitrogen 4 mg/dL (9-20); Calcium 8.1 mg/dL (8.4-10.2); Carbon Dioxide 26 mmol/L (22-30); Chloride 82 mmol/L (98-107); Estimated CRCL calculation 146 ml/min; Estimated Glomerular Filt Rate > 60; Glucose 107 mg/dL (75-110); Magnesium 1.7 mg/dL (1.6-2.3); Potassium 4.1 mmol/L (3.4-5.0); Sodium 116 mmol/L (137-145)
[2021-02-25] MEDS: ALBUTEROL SULFATE (*SP) AEROSOL 1 PUFF 2 PUFF INHALATION ×3 (08:06→20:37)
[2021-02-25] MEDS: FOLIC ACID 1 MG/0.2 ML INJ IV PUSH (08:40)
[2021-02-25] MEDS: THIAMINE HCL 200 MG/2 ML VIAL 100 MG IV PUSH (08:40)
[2021-02-25] MEDS: ENOXAPARIN 40 MG/0.4 ML SYRINGE SUB-Q (08:40)
--- NOTE | 2021-02-25 09:15 | WPDINTPN ---
Progress Note: A&P Assessment and Plan (1) Sepsis: Code(s): A41.9 - Sepsis, unspecified organism Status: Acute Assessment and Plan: Secondary to cellulitis and/or pneumonia, cystitis/UTI Blood and urine cultures pending Patient on empiric vancomycin and Unasyn Lactate was normal Not on IV fluids due to concern of heart failure (2) Cellulitis of left lower extremity: Code(s): L03.116 - Cellulitis of left lower limb Status: Acute Assessment and Plan: Continue vancomycin and Unasyn Blood cultures ordered Arterial Doppler reviewed and shows the patient has and a femoral graft supplying lower leg (3) Hyponatremia: Code(s): E87.1 - Hypo-osmolality and hyponatremia Status: Acute Assessment and Plan: Hyponatremia could be beer potomania versus dehydration Renal function is normal Nephrology is following and managing. Hyponatremia. On presentation patient wast was started on 3% saline. Sodium increased [id number] to 112 and 3% saline was stopped. Sodium improving at appropriate rate and is 116 today Continue Serial sodium monitoring. Will defer management to Nephrology Seizure precaution (4) Altered mental status: Qualifiers: Altered mental status type: disorientation Qualified Code(s): R41.0 - Disorientation, unspecified Code(s): R41.82 - Altered mental status, unspecified Status: Acute Assessment and Plan: Multifactorial Head CT was negative Correct sodium slowly Continue Thiamine and folic acid Normal ammonia Normal TSH (5) Peripheral vascular disease: Onset Date: 07/24/12 Code(s): I73.9 - Peripheral vascular disease, unspecified Status: Acute Assessment and Plan: See above (6) Edema: Code(s): R60.9 - Edema, unspecified Status: Acute Assessment and Plan: Lower extremity Dopplers are ordered and were negative for DVT BNP was 8290 Cautious IV fluids (7) Alcohol abuse: Code(s): F10.10 - Alcohol abuse, uncomplicated Status: Acute Assessment and Plan: Thiamine and folic acid (8) Pneumonia: Code(s): J18.9 - Pneumonia, unspecified organism Status: Acute Assessment and Plan: Most likely aspiration aspiration Blood culture Cultures Patient is on Unasyn (9) UTI (urinary tract infection): Code(s): N39.0 - Urinary tract infection, site not specified Status: Acute Assessment and Plan: Urine cultures pending On Unasyn Additional Plan DVT prophylaxis -start Lovenox Nutrition -NPO at this time Code Status - Full Code I spoke to patient's [id number] Yuni who is listed as person to notify the chart. She has not seen the patient for last 1 year. Patient has 3 children, Miquel live in [place], Aldo who is Nikky' also doesn't see Jack frequently. Pt's daughter is the closest and Yuni will try to obtain her contact information and call us back. I also spoke to Aldo Carlson yesterday when he came to see the patient. He also is not close to his dad and has not seen him for last year. He is aware that he drinks alcohol heavily and lives in a poor condition and does not take care of his health. He he told me that he was aware that his leg had problems but was not aware that it was in such a bad shape. He requested me to discuss with regarding additional or further details. Total Critical Care Time - 32 minutes Due to a high probability of clinically significant, life threatening deterioration, the patient required my highest level of preparedness to intervene emergently and I personally spent this critical care time directly and personally managing the patient. This critical care time included obtaining a history; examining the patient; pulse oximetry; ordering and review of studies; arranging urgent treatment with development of a management plan; evaluation of patient's response to treatment; frequen
[2021-02-25 10:23] LABS: Anion Gap 7 mmol/L (8-16); Blood Urea Nitrogen 5 mg/dL (9-20); Carbon Dioxide 25 mmol/L (22-30); Chloride 83 mmol/L (98-107); Estimated CRCL calculation 143 ml/min; Estimated Glomerular Filt Rate > 60; Glucose 98 mg/dL (75-110); Potassium 3.6 mmol/L (3.4-5.0); Sodium 115 mmol/L (137-145)
--- NOTE | 2021-02-25 10:43 | PM.PNNEP ---
Progress Note: A&P Assessment and Plan (1) Hyponatremia: Code(s): E87.1 - Hypo-osmolality and hyponatremia Status: Acute Assessment and Plan: sodium level is very low. He was given 3% saline for small amount and corrected the sodium by 4 but mental status did not improve. After that he started auto correcting so he was given DDAVP to slow this down. Sodium Level was brought back down into range. Now the sodium has been relatively stable. Another 1 is pending now. This morning's sodium was 116 we will use this as the new baseline for the next 24 hours. Serum and urine osmolality are pending. Cortisol and TSH are okay. Electrophoresis is pending The patient looks like he has a little bit dehydrated. His chest x-ray showed some infiltrates but is echo was good. I agree with Dr. Garcia that that chest x-ray is not indicative of volume overload. Will try giving a little bit of saline. The nurse is going to call me the sodium which is pending now. (2) Cellulitis of left lower extremity: Code(s): L03.116 - Cellulitis of left lower limb Status: Acute Assessment and Plan: The patient is getting antibiotics. Cultures have been drawn. (3) Intractable nausea and vomiting: Code(s): R11.2 - Nausea with vomiting, unspecified Status: Acute Assessment and Plan: Patient is not eating currently. (4) Alcohol dependence: Code(s): F10.20 - Alcohol dependence, uncomplicated Status: Acute Assessment and Plan: The patient is getting thiamine (5) Sepsis: Code(s): A41.9 - Sepsis, unspecified organism Status: Acute Assessment and Plan: the patient is on antibiotics His leg looks suspect for the source. (6) Altered mental status: Qualifiers: Altered mental status type: disorientation Qualified Code(s): R41.0 - Disorientation, unspecified Code(s): R41.82 - Altered mental status, unspecified Status: Acute Assessment and Plan: possibly due to sepsis. This is improved. (7) SIRS (systemic inflammatory response syndrome): Code(s): R65.10 - Systemic inflammatory response syndrome (SIRS) of non-infectious origin without acute organ dysfunction Status: Acute Assessment and Plan: Lactic acid is okay (8) Peripheral vascular disease: Onset Date: 07/24/12 Code(s): I73.9 - Peripheral vascular disease, unspecified Status: Acute Assessment and Plan: status post right [id number] amputation Subjective Date/time seen: 02/25/21 10:43 Interval history: Patient is a little more awake. He does not really interact but at least he regards examiner. Review of Systems Review of Systems: ROS unobtainable: Yes unobtainable due to mental status Exam Narrative: Exam Narrative: WDWN in NAD skin no rash head ncat lungs clear cor reg no rub abd BS+ nontender and soft ext no edema. Objective Data Vital Signs Vital Signs: Vital Signs - 24 hr 02/24/21 12:00 02/24/21 14:00 02/24/21 16:00 Temperature 37.1 C 37.2 C Pulse Rate 108 H 99 106 H Respiratory Rate 29 H 24 H 23 H Blood Pressure 99/63 L 120/92 H 97/62 L Pulse Oximetry 90 99 95 02/24/21 18:00 02/24/21 20:00 02/24/21 22:00 Temperature 37.6 C H Pulse Rate 94 100 101 H Respiratory Rate 23 H 24 H 24 H Blood Pressure 90/63 L 100/65 112/78 Pulse Oximetry 96 94 97 02/24/21 23:48 02/24/21 23:51 02/25/21 00:00 Temperature 37.5 C Pulse Rate 108 H 97 Respiratory Rate 24 H Blood Pressure 112/78 Pulse Oximetry 95 96 02/25/21 02:00 02/25/21 04:00 02/25/21 06:00 Temperature 37.4 C Pulse Rate 92 120 H 102 H Respiratory Rate 23 H 22 H 20 Blood Pressure 115/72 126/85 90/62 L Pulse Oximetry 96 96 98 02/25/21 08:00 02/25/21 08:09 02/25/21 09:24 Temperature 36.9 C Pulse Rate 104 H Respiratory Rate 20 Blood Pressure 156/60 H Pulse Oximetry 99 98 94 0
[2021-02-25 10:59] LABS: Vancomycin Trough < 5.0 ug/mL (10.0-20.0)
[2021-02-25] MEDS: VANCOMYCIN HCL 1,500 MG in SODIUM CHLORIDE 0.9% IV 500 ML 333.33 MG IVPB (12:20)
--- NOTE | 2021-02-25 14:39 | PM.IMPN ---
Progress Note: A&P Assessment and Plan (1) Sepsis: Code(s): A41.9 - Sepsis, unspecified organism Status: Acute Assessment and Plan: Present on admission with tachycardia, tachypnea and leukocytosis. UA noted. BCx and UCx collected. CXR clear but repeat showing bilateral reticulation. CT of abdomen and pelvis showing thickened bladder. Source likely to be left lower extremity cellulitis vs bacteremia vs UTI. Consider also developing aspiration PNA. Elevate HOB. COntineu IV abx. Change to Unasyn to prevent renal disease. 02/25/21 14:39 Patient is 60-year-old male with history of alcohol abuse he drinks 15 beers today upon arrival his sodium was 108, most likely secondary to alcoholic abuse resulting in potomania, is seen by harness puller, he was given 3% saline which did improve his sodium by 4 but there was no change in mentation however and later he auto correcting his sodium too fast and patient was given DDAVP to bring it down, patient still remains quite somnolent unable to provide any review of symptoms or history, patient also been diagnosed with sepsis and met criteria upon arrival with suspicion lower extremity cellulitis, UTI and pneumonia, so far there is no growth urine or blood culture, chest x-ray is suspicious for pneumonia patient is being treated Unasyn and vancomycin, patient is is seen by custom stock maker and Nephrology and appreciate, (2) Acute hyponatremia: Code(s): E87.1 - Hypo-osmolality and hyponatremia Status: Acute Assessment and Plan: Na 108 on admission. Patient drinks roughly 15 beers a day but also has been having nausea and vomiting daily. TSH normal but Cortisol level elevated probably from stress response. Consider beer potomania vs dehydration. Chloride is low but potassium normal. Suspect mainly due to GI losses. He received 6hours of 3% NS and Na climbed to 112. IV fluids stopped. Nephrology following and managing the hyponatremia. Good UOP. Serial BMPs ordered. Cautiously normalize sodium no more than 6 mEq daily. (3) Cellulitis of left lower extremity: Code(s): L03.116 - Cellulitis of left lower limb Status: Acute Assessment and Plan: Patient with possibly cellulitis to the LLE but consider ischemia as well. LA normal. Venous Doppler of left lower extremity ordered and is pending. MRI and MRA of the LLE also ordered but patient unable to have this procedure at this time. Will plan to check arterial doppler if venous doppler normal. Wound care consult. Continue IV abx. (4) Altered mental status: Qualifiers: Altered mental status type: disorientation Qualified Code(s): R41.0 - Disorientation, unspecified Code(s): R41.82 - Altered mental status, unspecified Status: Acute Assessment and Plan: CT brain showing old encephalomalacia but no acute findings. Acute metabolic encephalopathy likely secondary to severe hyponatremia. Can not exclude related to sepsis but felt less likely. As above. Monitor closely as Na improves. Continue supportive care. (5) Peripheral vascular disease: Onset Date: 07/24/12 Code(s): I73.9 - Peripheral vascular disease, unspecified Status: Acute Assessment and Plan: Qamar is status post right AKA. Evaluation as above. Echo ordered as well. Fall precautions when he is up. PT/OT when he improves. Follow up on Echo results. (6) Alcohol dependence: Code(s): F10.20 - Alcohol dependence, uncomplicated Status: Acute Assessment and Plan: Patient drinks roughly 15 beers a day. Thiamine and Folate started. Monitor for withdrawal symnptoms with CIWA protocol. Ativan available prn for withdrawal symptoms. (7) Intractable nausea and vomiting: Code(s): R11.2 - Nausea with vomiting, unspecified Status: Acute Assessment and Plan: CT of abdomen and pelvis reviewed showing only thickened bladder. Rachel
[2021-02-25 16:25] LABS: Anion Gap 6 mmol/L (8-16); Blood Urea Nitrogen 4 mg/dL (9-20); Calcium 7.9 mg/dL (8.4-10.2); Carbon Dioxide 27 mmol/L (22-30); Chloride 86 mmol/L (98-107); Estimated CRCL calculation 143 ml/min; Estimated Glomerular Filt Rate > 60; Glucose 95 mg/dL (75-110); Potassium 3.2 mmol/L (3.4-5.0); Sodium 119 mmol/L (137-145)
[2021-02-25 22:30] LABS: Anion Gap 7 mmol/L (8-16); Blood Urea Nitrogen 4 mg/dL (9-20); Calcium 8.1 mg/dL (8.4-10.2); Carbon Dioxide 28 mmol/L (22-30); Chloride 86 mmol/L (98-107); Estimated CRCL calculation 182 ml/min; Estimated Glomerular Filt Rate > 60; Glucose 83 mg/dL (75-110); Sodium 121 mmol/L (137-145)
[2021-02-25] MEDS: VANCOMYCIN HCL 1,500 MG in SODIUM CHLORIDE 0.9% IV 500 ML 333 MG IVPB (23:53)
[2021-02-26] VITALS (21 sets, daily range): BP systolic 83–126; BP diastolic 55–83; PULSE 90–115; RESP 18–36; TEMP 36.4–37.1; O2SAT 91–99
[2021-02-26] MEDS: ALBUTEROL SULFATE (*SP) AEROSOL 1 PUFF 2 PUFF INHALATION ×4 (02:21→20:20)
[2021-02-26 04:25] LABS: Hemoglobin 12.5 g/dL (14.0-18.0); Mean Corpuscular HGB Conc 35.7 g/dl (32-36); Mean Corpuscular Hemoglobin 34.7 pg (26-34); Mean Corpuscular Volume 97.2 fl (80-100); Mean Platelet Volume 9.7 fl (7.4-10.4); Platelet Count Result 234 k/mm3 (150-375); Red Cell Distribution Width 11.7 % (11.5-14.5); White Blood Count 20.9 K/mm3 (4.5-10.0)
[2021-02-26 04:35] LABS: Alanine Aminotransferase 55 U/L (4-50); Albumin Level 2.8 g/dL (3.5-5.1); Alkaline Phosphatase 108 U/L (38-126); Anion Gap 8 mmol/L (8-16); Aspartate Amino Transferase 95 U/L (17-59); Blood Urea Nitrogen 5 mg/dL (9-20); Carbon Dioxide 28 mmol/L (22-30); Chloride 87 mmol/L (98-107); Estimated CRCL calculation 187 ml/min; Estimated Glomerular Filt Rate > 60; Glucose 88 mg/dL (75-110); Magnesium 1.7 mg/dL (1.6-2.3); Sodium 123 mmol/L (137-145)
[2021-02-26] MEDS: AMPICILLIN SULB 3 GM/NS 100 ML 3 GM/100 ML VIAL IVPB ×4 (06:08→23:01)
[2021-02-26] MEDS: ENOXAPARIN 40 MG/0.4 ML SYRINGE SUB-Q (08:12)
[2021-02-26] MEDS: FOLIC ACID 1 MG/0.2 ML INJ IV PUSH (08:12)
[2021-02-26] MEDS: THIAMINE HCL 200 MG/2 ML VIAL 100 MG IV PUSH (08:12)
--- NOTE | 2021-02-26 09:28 | WPDINTPN ---
Progress Note: A&P Assessment and Plan (1) Sepsis: Code(s): A41.9 - Sepsis, unspecified organism Status: Acute Assessment and Plan: Secondary to cellulitis and/or pneumonia, cystitis/UTI Blood and urine cultures are negative till now Patient is on empiric vancomycin and Unasyn. Since cultures have been negative for more than 48 hours I will discontinue vancomycin and continue Unasyn Lactate was normal Not on IV fluids due to concern of heart failure and volume overload (2) Cellulitis of left lower extremity: Code(s): L03.116 - Cellulitis of left lower limb Status: Acute Assessment and Plan: Continue Unasyn and DC vancomycin Blood cultures have been negative so far Arterial Doppler reviewed and shows the patient has and a femoral graft supplying lower leg (3) Hyponatremia: Code(s): E87.1 - Hypo-osmolality and hyponatremia Status: Acute Assessment and Plan: Hyponatremia could be beer potomania Renal function is normal Nephrology is following and managing. Hyponatremia. On presentation patient was was started on 3% saline. Sodium increased [id number] to 112 and 3% saline was stopped. Sodium improving at appropriate rate and is 123 today Continue Serial sodium monitoring. Will defer management to Nephrology Seizure precaution (4) Altered mental status: Qualifiers: Altered mental status type: disorientation Qualified Code(s): R41.0 - Disorientation, unspecified Code(s): R41.82 - Altered mental status, unspecified Status: Acute Assessment and Plan: Multifactorial. Improving Head CT was negative Continue to correct sodium slowly Continue Thiamine and folic acid Normal ammonia Normal TSH Minimize sedatives Nonfocal exam (5) Peripheral vascular disease: Onset Date: 07/24/12 Code(s): I73.9 - Peripheral vascular disease, unspecified Status: Acute Assessment and Plan: See above (6) Edema: Code(s): R60.9 - Edema, unspecified Status: Acute Assessment and Plan: Lower extremity Dopplers are ordered and were negative for DVT BNP was 8290 Off IV fluid (7) Alcohol abuse: Code(s): F10.10 - Alcohol abuse, uncomplicated Status: Acute Assessment and Plan: Thiamine and folic acid (8) Pneumonia: Code(s): J18.9 - Pneumonia, unspecified organism Status: Acute Assessment and Plan: Most likely aspiration aspiration Blood culture Cultures Patient is on Unasyn (9) UTI (urinary tract infection): Code(s): N39.0 - Urinary tract infection, site not specified Status: Acute Assessment and Plan: Urine cultures pending On Unasyn Additional Plan DVT prophylaxis -start Lovenox Nutrition -started advance diet Code Status - Full Code Per patient's family he drinks alcohol heavily and lives in a poor condition and does not take care of his health. Total Critical Care Time - 30 minutes Due to a high probability of clinically significant, life threatening deterioration, the patient required my highest level of preparedness to intervene emergently and I personally spent this critical care time directly and personally managing the patient. This critical care time included obtaining a history; examining the patient; pulse oximetry; ordering and review of studies; arranging urgent treatment with development of a management plan; evaluation of patient's response to treatment; frequent reassessment; and discussions with other providers. It was exclusive of separately billable procedures and treating other patients and teaching time. Please see Assessment and Plan section and the rest of the note for further information on patient assessment and treatment Subjective Date/time seen: 02/26/21 Patient is relatively more awake today. Did not need any Ativan overnight He still confused and not fully oriented. He complains of pain in his left leg. He state
--- NOTE | 2021-02-26 10:36 | PM.PNNEP ---
Progress Note: A&P Assessment and Plan (1) Hyponatremia: Code(s): E87.1 - Hypo-osmolality and hyponatremia Status: Acute Assessment and Plan: sodium level was very low. Early on auto corrected but that was compensated for by DDAVP and free water. Recently sodium has been correcting at an appropriate rate. 02/24 Na 113 02/25 Na 116 02/26 Na 123 Serum and urine osmolality are pending. Cortisol and TSH are okay. Now that he is eating, will fluid restrict. (2) Cellulitis of left lower extremity: Code(s): L03.116 - Cellulitis of left lower limb Status: Acute Assessment and Plan: The patient is getting antibiotics. Cultures have been drawn. (3) Intractable nausea and vomiting: Code(s): R11.2 - Nausea with vomiting, unspecified Status: Acute Assessment and Plan: Patient is not eating currently. (4) Alcohol dependence: Code(s): F10.20 - Alcohol dependence, uncomplicated Status: Acute Assessment and Plan: The patient is getting thiamine (5) Sepsis: Code(s): A41.9 - Sepsis, unspecified organism Status: Acute Assessment and Plan: the patient is on antibiotics His leg looks suspect for the source. (6) Altered mental status: Qualifiers: Altered mental status type: disorientation Qualified Code(s): R41.0 - Disorientation, unspecified Code(s): R41.82 - Altered mental status, unspecified Status: Acute Assessment and Plan: possibly due to sepsis. This is improved. (7) SIRS (systemic inflammatory response syndrome): Code(s): R65.10 - Systemic inflammatory response syndrome (SIRS) of non-infectious origin without acute organ dysfunction Status: Acute Assessment and Plan: Lactic acid is okay (8) Peripheral vascular disease: Onset Date: 07/24/12 Code(s): I73.9 - Peripheral vascular disease, unspecified Status: Acute Assessment and Plan: status post right [id number] amputation Subjective Date/time seen: 02/26/21 10:36 Interval history: Doing better mentally. He converses now. He denies any shortness of breath, nausea, vomiting, diarrhea. Does have some pain in that left foot. Exam Narrative: Exam Narrative: WDWN in NAD skin no rash head ncat lungs clear Bilaterally cor reg no rub abd BS+ nontender and soft ext no edema. right sided amputation. Left foot has eschars and erythema. Bruise on the lateral left calf. Objective Data Vital Signs Vital Signs: Vital Signs - 24 hr 02/25/21 12:00 02/25/21 14:00 02/25/21 16:00 Temperature 37.3 C 36.8 C Pulse Rate 102 H 94 94 Respiratory Rate 24 H 22 H 21 H Blood Pressure 157/66 H 145/76 H 141/58 H Pulse Oximetry 98 98 99 02/25/21 18:00 02/25/21 19:50 02/25/21 20:00 Temperature 37.2 C Pulse Rate 95 96 98 Respiratory Rate 18 19 Blood Pressure 153/63 H 153/63 H Pulse Oximetry 97 98 98 02/25/21 20:37 02/25/21 20:38 02/25/21 22:00 Temperature Pulse Rate 104 H 106 H 102 H Respiratory Rate 17 17 Blood Pressure 113/71 Pulse Oximetry 95 97 02/25/21 23:51 02/26/21 00:00 02/26/21 02:00 Temperature 37.2 C Pulse Rate 103 H 100 100 Respiratory Rate 25 H 22 H Blood Pressure 110/69 125/76 Pulse Oximetry 97 96 98 02/26/21 02:22 02/26/21 03:42 02/26/21 03:44 Temperature 37.1 C Pulse Rate 102 H 105 H Respiratory Rate 20 24 H Blood Pressure 118/62 Pulse Oximetry 97 96 02/26/21 04:00 02/26/21 06:00 02/26/21 07:56 Temperature Pulse Rate 96 91 98 Respiratory Rate 20 26 H Blood Pressure 117/83 Pulse Oximetry 99 95 02/26/21 08:00 02/26/21 10:00 Temperature 37.1 C Pulse Rate 93 101 H Respiratory Rate 21 H 18 Blood Pressure 109/65 104/72 Pulse Oximetry 97 98 Intake/Output Intake/Output: Intake & Output 02/23/21 02/24/21 02/25/21 02/26/21 23:59 23:59 23:59 23:59 Intake Total 50 1330 115
[2021-02-26] MEDS: POTASSIUM CHLORIDE INJ 40 MEQ in SODIUM CHLORIDE 0.9% IV 500 ML 130 MEQ IVPB (10:47)
[2021-02-26 11:00] LABS: Anion Gap 9 mmol/L (8-16); Blood Urea Nitrogen 4 mg/dL (9-20); Calcium 8.1 mg/dL (8.4-10.2); Carbon Dioxide 28 mmol/L (22-30); Chloride 87 mmol/L (98-107); Estimated CRCL calculation 147 ml/min; Estimated Glomerular Filt Rate > 60; Glucose 86 mg/dL (75-110); Potassium 2.8 mmol/L (3.4-5.0); Sodium 124 mmol/L (137-145)
[2021-02-26] MEDS: POTASSIUM CHLORIDE 20 MEQ TABLET.ER 40 MEQ PO ×2 (11:54→16:52)
--- NOTE | 2021-02-26 13:56 | PM.IMPN ---
Progress Note: A&P Assessment and Plan (1) Sepsis: Code(s): A41.9 - Sepsis, unspecified organism Status: Acute Assessment and Plan: Present on admission with tachycardia, tachypnea and leukocytosis. UA noted. BCx and UCx collected. CXR clear but repeat showing bilateral reticulation. CT of abdomen and pelvis showing thickened bladder. Source likely to be left lower extremity cellulitis vs bacteremia vs UTI. Consider also developing aspiration PNA. Elevate HOB. COntineu IV abx. Change to Unasyn to prevent renal disease. 02/26/21 13:56 Patient is 60-year-old male with history of alcohol abuse he drinks 15 beers today upon arrival his sodium was 108, most likely secondary to alcoholic abuse resulting in potomania, is seen by slab stripper, he was given 3% saline which did improve his sodium by 4 but there was no change in mentation however and later he auto correcting his sodium too fast and patient was given DDAVP to bring it down, patient still remains quite somnolent unable to provide any review of symptoms or history, patient also been diagnosed with sepsis and met criteria upon arrival with suspicion lower extremity cellulitis, UTI and pneumonia, so far there is no growth urine or blood culture, chest x-ray is suspicious for pneumonia patient is being treated Unasyn and vancomycin, patient is is seen by motorcycle tester and Nephrology and appreciate. 02/26 patient is little more awake today unable to provide review of symptom, his sodium is trending up 124 compare to 108 upon arrival, patient is now eating seen by slab stripper recommending free fluid restriction and will continue to monitor his sodium level, patient with sepsis with elevated white counts secondary cellulitis, pneumonia and UTI however blood culture is negative so far motorcycle tester stopped the vancomycin continued Unasyn, urine culture is growing Enterococcus species sensitivities pending, patient is seen nephrology and motorcycle tester appreciate. (2) Acute hyponatremia: Code(s): E87.1 - Hypo-osmolality and hyponatremia Status: Acute Assessment and Plan: Na 108 on admission. Patient drinks roughly 15 beers a day but also has been having nausea and vomiting daily. TSH normal but Cortisol level elevated probably from stress response. Consider beer potomania vs dehydration. Chloride is low but potassium normal. Suspect mainly due to GI losses. He received 6hours of 3% NS and Na climbed to 112. IV fluids stopped. Nephrology following and managing the hyponatremia. Good UOP. Serial BMPs ordered. Cautiously normalize sodium no more than 6 mEq daily. (3) Cellulitis of left lower extremity: Code(s): L03.116 - Cellulitis of left lower limb Status: Acute Assessment and Plan: Patient with possibly cellulitis to the LLE but consider ischemia as well. LA normal. Venous Doppler of left lower extremity ordered and is pending. MRI and MRA of the LLE also ordered but patient unable to have this procedure at this time. Will plan to check arterial doppler if venous doppler normal. Wound care consult. Continue IV abx. (4) Altered mental status: Qualifiers: Altered mental status type: disorientation Qualified Code(s): R41.0 - Disorientation, unspecified Code(s): R41.82 - Altered mental status, unspecified Status: Acute Assessment and Plan: CT brain showing old encephalomalacia but no acute findings. Acute metabolic encephalopathy likely secondary to severe hyponatremia. Can not exclude related to sepsis but felt less likely. As above. Monitor closely as Na improves. Continue supportive care. (5) Peripheral vascular disease: Onset Date: 07/24/12 Code(s): I73.9 - Peripheral vascular disease, unspecified Status: Acute Assessment and Plan: Pateitn is status post right AKA. Evaluation as above. Echo ordered as well. Fall precautions when he is up. PT/OT when h
[2021-02-26 16:18] LABS: Anion Gap 10 mmol/L (8-16); Blood Urea Nitrogen 5 mg/dL (9-20); Calcium 8.1 mg/dL (8.4-10.2); Carbon Dioxide 24 mmol/L (22-30); Chloride 91 mmol/L (98-107); Estimated CRCL calculation 187 ml/min; Estimated Glomerular Filt Rate > 60; Glucose 76 mg/dL (75-110); Potassium 3.7 mmol/L (3.4-5.0); Sodium 125 mmol/L (137-145)
[2021-02-26 21:25] LABS: Anion Gap 10 mmol/L (8-16); Blood Urea Nitrogen 5 mg/dL (9-20); Calcium 8.1 mg/dL (8.4-10.2); Carbon Dioxide 26 mmol/L (22-30); Chloride 90 mmol/L (98-107); Estimated CRCL calculation 187 ml/min; Estimated Glomerular Filt Rate > 60; Glucose 173 mg/dL (75-110); Potassium 3.5 mmol/L (3.4-5.0); Sodium 126 mmol/L (137-145)
[2021-02-26] MEDS: ACETAMINOPHEN 325 MG TABLET 650 MG PO (21:40)
[2021-02-27] VITALS (23 sets, daily range): BP systolic 92–178; BP diastolic 59–84; PULSE 86–115; RESP 16–26; TEMP 36.3–37.3; O2SAT 90–100
[2021-02-27] MEDS: ALBUTEROL SULFATE (*SP) AEROSOL 1 PUFF 2 PUFF INHALATION ×4 (02:02→21:07)
[2021-02-27 04:51] LABS: Hematocrit 36.2 % (42.0-52.0); Hemoglobin 12.7 g/dL (14.0-18.0); Mean Corpuscular HGB Conc 35.1 g/dl (32-36); Mean Corpuscular Hemoglobin 34.9 pg (26-34); Mean Corpuscular Volume 99.5 fl (80-100); Mean Platelet Volume 9.4 fl (7.4-10.4); Platelet Count Result 259 k/mm3 (150-375); Red Blood Count 3.64 M/mm3 (4.6-6.20); Red Cell Distribution Width 11.8 % (11.5-14.5); White Blood Count 15.5 K/mm3 (4.5-10.0)
[2021-02-27] MEDS: AMPICILLIN SULB 3 GM/NS 100 ML 3 GM/100 ML VIAL IVPB ×4 (05:04→23:30)
[2021-02-27 05:05] LABS: Alanine Aminotransferase 53 U/L (4-50); Albumin Level 2.8 g/dL (3.5-5.1); Alkaline Phosphatase 103 U/L (38-126); Anion Gap 6 mmol/L (8-16); Aspartate Amino Transferase 68 U/L (17-59); Blood Urea Nitrogen 7 mg/dL (9-20); Calcium 8.2 mg/dL (8.4-10.2); Carbon Dioxide 29 mmol/L (22-30); Chloride 91 mmol/L (98-107); Estimated CRCL calculation 152 ml/min; Estimated Glomerular Filt Rate > 60; Glucose 97 mg/dL (75-110); Magnesium 1.6 mg/dL (1.6-2.3); Phosphorus 2.7 mg/dL (2.5-4.5); Potassium 3.5 mmol/L (3.4-5.0); Sodium 126 mmol/L (137-145)
[2021-02-27 05:34] LABS: Osmolality, Urine 467 mOsm/kg (50-1200)
--- NOTE | 2021-02-27 07:51 | WPDINTPN ---
Progress Note: A&P Assessment and Plan (1) Sepsis: Code(s): A41.9 - Sepsis, unspecified organism Status: Acute Assessment and Plan: Secondary to cellulitis and/or pneumonia, cystitis/UTI Blood and urine cultures- For Enterococcus which is pansensitive Patient was on empiric vancomycin and Unasyn. Now off of vancomycin and will continue Unasyn Lactate was normal Not on IV fluids due to concern of heart failure and volume overload (2) Cellulitis of left lower extremity: Code(s): L03.116 - Cellulitis of left lower limb Status: Acute Assessment and Plan: Continue Unasyn and DC vancomycin Blood cultures have been negative so far Arterial Doppler reviewed and shows the patient has and a femoral graft supplying lower leg (3) Hyponatremia: Code(s): E87.1 - Hypo-osmolality and hyponatremia Status: Acute Assessment and Plan: Hyponatremia could be beer potomania Renal function is normal Nephrology is following and managing. Hyponatremia. On presentation patient was was started on 3% saline. Sodium increased [id number] to 112 and 3% saline was stopped. Sodium improving at appropriate rate and is 126 today Continue sodium monitoring but less frequent. Will defer management to Nephrology Seizure precautions Free water restriction (4) Altered mental status: Qualifiers: Altered mental status type: disorientation Qualified Code(s): R41.0 - Disorientation, unspecified Code(s): R41.82 - Altered mental status, unspecified Status: Acute Assessment and Plan: Multifactorial. Significantly improved today has he is alert oriented x3 Head CT was negative Continue to correct sodium slowly Continue Thiamine and folic acid Normal ammonia Normal TSH Minimize sedatives Nonfocal exam (5) Peripheral vascular disease: Onset Date: 07/24/12 Code(s): I73.9 - Peripheral vascular disease, unspecified Status: Acute Assessment and Plan: See above (6) Edema: Code(s): R60.9 - Edema, unspecified Status: Acute Assessment and Plan: Lower extremity Dopplers are ordered and were negative for DVT BNP was 8290 Off IV fluid (7) Alcohol abuse: Code(s): F10.10 - Alcohol abuse, uncomplicated Status: Acute Assessment and Plan: Thiamine and folic acid (8) Pneumonia: Code(s): J18.9 - Pneumonia, unspecified organism Status: Acute Assessment and Plan: Most likely aspiration aspiration Blood culture Cultures Patient is on Unasyn (9) UTI (urinary tract infection): Code(s): N39.0 - Urinary tract infection, site not specified Status: Acute Assessment and Plan: Urine cultures pending On Unasyn Additional Plan DVT prophylaxis -Lovenox Nutrition -advance diet Code Status - Full Code Per patient's family he drinks alcohol heavily 12-18 beers a day and lives in a poor condition and does not take care of his health. PT OT consult IS Up in chair Transfer out of ICU today Subjective Date/time seen: 02/27/21 Overnight events reviewed. Afebrile Significantly more awake and alert today. Complains of pain in his left leg which is 8/10, constant, sharp, has been going on for a while Denies any other complaints. His morning where his wallet and keys are Does not remember what happened over last few days All other systems were reviewed and were negative Vitals acceptable Review of Systems Review of Systems: All systems reviewed & are unremarkable except as noted in HPI and below (. Subjective) ROS unobtainable: Yes unobtainable due to mental status Exam Narrative: Exam Narrative: General: Pt is awake and alert Lungs/Chest: Trachea central Clear BS B/L, bilateral crackles Cardiac: RRR. Normal S1 S2. No murmurs Circulation: Left dorsalis pedis is dopplerable, circulation is poor with poor cap refill, his left popliteal is not palpable Abdomen: Normal bowel
--- NOTE | 2021-02-27 07:59 | PM.PNNEP ---
Progress Note: A&P Assessment and Plan (1) Hyponatremia: Code(s): E87.1 - Hypo-osmolality and hyponatremia Status: Acute Assessment and Plan: sodium level was very low. Early on auto corrected but that was compensated for by DDAVP and free water. Recently sodium has been correcting at an appropriate rate. 02/24 Na 113 / Na 116 / Na 123 / Na 126 Serum and urine osmolality are c/2 SIADH Cortisol and TSH are okay. Now. Will fluid restrict [id number] (2) Cellulitis of left lower extremity: Code(s): L03.116 - Cellulitis of left lower limb Status: Acute Assessment and Plan: The patient is getting antibiotics. Cultures negative so far (3) Intractable nausea and vomiting: Code(s): R11.2 - Nausea with vomiting, unspecified Status: Acute Assessment and Plan: Patient is better, tolerating his diet. (4) Alcohol dependence: Code(s): F10.20 - Alcohol dependence, uncomplicated Status: Acute Assessment and Plan: The patient is getting thiamine (5) Sepsis: Code(s): A41.9 - Sepsis, unspecified organism Status: Acute Assessment and Plan: the patient is on antibiotics His leg looks suspect for the source. he also has a postiive UCx. (6) Altered mental status: Qualifiers: Altered mental status type: disorientation Qualified Code(s): R41.0 - Disorientation, unspecified Code(s): R41.82 - Altered mental status, unspecified Status: Acute Assessment and Plan: improved. (7) SIRS (systemic inflammatory response syndrome): Code(s): R65.10 - Systemic inflammatory response syndrome (SIRS) of non-infectious origin without acute organ dysfunction Status: Acute Assessment and Plan: Lactic acid is okay (8) Peripheral vascular disease: Onset Date: 07/24/12 Code(s): I73.9 - Peripheral vascular disease, unspecified Status: Acute Assessment and Plan: status post right pegwe-[id number] amputation Subjective Date/time seen: 02/27/21 07:59 Interval history: Feels okay today. Still has left leg pain. No shortness of breath or chest pain Exam Narrative: Exam Narrative: WDWN in NAD skin no rash head ncat lungs clear Bilaterally cor reg no rub abd BS+ nontender and soft ext no edema. right sided amputation. Left foot has eschars and erythema. Bruise on the lateral left calf. An eschar has formed. Objective Data Vital Signs Vital Signs: Vital Signs - 24 hr 02/26/21 08:00 02/26/21 08:40 02/26/21 10:00 Temperature 37.1 C Pulse Rate 93 98 101 H Respiratory Rate 21 H 18 Blood Pressure 109/65 104/72 Pulse Oximetry 97 96 98 02/26/21 12:00 02/26/21 13:49 02/26/21 14:00 Temperature 36.6 C Pulse Rate 107 H 103 H 104 H Respiratory Rate 32 H 25 H 18 Blood Pressure 122/70 115/81 Pulse Oximetry 92 98 02/26/21 16:00 02/26/21 18:00 02/26/21 20:00 Temperature 36.9 C 36.6 C Pulse Rate 102 H 102 H 108 H Respiratory Rate 23 H 18 24 H Blood Pressure 122/76 126/81 119/74 Pulse Oximetry 98 98 95 02/26/21 20:21 02/26/21 20:55 02/26/21 21:00 Temperature Pulse Rate 112 H 108 H 115 H Respiratory Rate 36 H 19 Blood Pressure Pulse Oximetry 95 93 91 02/26/21 22:00 02/27/21 00:00 02/27/21 02:00 Temperature 37.1 C Pulse Rate 99 98 92 Respiratory Rate 20 21 H 17 Blood Pressure 93/62 L 97/59 L 105/63 Pulse Oximetry 98 98 90 02/27/21 02:03 02/27/21 04:00 02/27/21 06:00 Temperature 37.2 C Pulse Rate 86 100 88 Respiratory Rate 17 21 H 21 H Blood Pressure 100/84 122/82 Pulse Oximetry 95 98 98 02/27/21 07:21 Temperature Pulse Rate 86 Respiratory Rate 17 Blood Pressure Pulse Oximetry 100 Intake/Output Intake/Output: Intake & Output 02/24/21 02/25/21 02/26/21 02/27/21 23:59 23:59 23:59 23:59 Intake Total 1330 1150 1880 750 Output Total 1365 2250 2450 900 Balance -9765
[2021-02-27] MEDS: MAGNESIUM SULF 2 GM/WATER 50ML 2 GM/50 ML BAG IVPB (08:01)
[2021-02-27] MEDS: POTASSIUM CHLORIDE 20 MEQ TABLET 40 MEQ PO (08:02)
[2021-02-27] MEDS: ENOXAPARIN 40 MG/0.4 ML SYRINGE SUB-Q (08:02)
[2021-02-27] MEDS: THIAMINE HCL 200 MG/2 ML VIAL 100 MG IV PUSH (08:03)
[2021-02-27] MEDS: FOLIC ACID 1 MG/0.2 ML INJ IV PUSH (08:07)
--- NOTE | 2021-02-27 08:43 | PCPTNOTE ---
Attempted PT eval. Pt refusing therapy, states she doesn't feel well. Explained purpose of therapy and she still refused. Will try again at later time.
--- NOTE | 2021-02-27 09:47 | PM.IMPN ---
Progress Note: A&P Assessment and Plan (1) Sepsis: Code(s): A41.9 - Sepsis, unspecified organism Status: Acute Assessment and Plan: Present on admission with tachycardia, tachypnea and leukocytosis. UA noted. BCx and UCx collected. CXR clear but repeat showing bilateral reticulation. CT of abdomen and pelvis showing thickened bladder. Source likely to be left lower extremity cellulitis vs UTI. UCx growing Enterococcus. BCx NGTD. Contineu Unasyn. (2) Pneumonia: Code(s): J18.9 - Pneumonia, unspecified organism Status: Acute Assessment and Plan: CXR clear on admission but developed increased reticulation on repeat CXR. Given that he was found down and with the nausea/vomiting, there was concern for aspiration pneumonia. Blood culture NGTD. As above (3) UTI (urinary tract infection): Code(s): N39.0 - Urinary tract infection, site not specified Status: Acute Assessment and Plan: As above. (4) Acute hyponatremia: Code(s): E87.1 - Hypo-osmolality and hyponatremia Status: Acute Assessment and Plan: Na 108 on admission. Patient drinks roughly 15 beers a day but also has been having nausea and vomiting daily. TSH normal but Cortisol level elevated probably from stress response. He received 6hours of 3% NS and Na climbed to 112. IV fluids stopped. Nephrology following and managing the hyponatremia with Na up to 126 now with improvement of his mental status. Continue to monitor with BMPs. (5) Cellulitis of left lower extremity: Code(s): L03.116 - Cellulitis of left lower limb Status: Acute Assessment and Plan: Patient with possibly cellulitis to the LLE but consider ischemia as well. LA normal. Venous Doppler of left lower extremity negative. Arterial doppler showing moderate to large amount of left common femoral plaque extending into proximal aspect of patent femoral graft, which is supplying peroneal and anterior tibial arteries. Continue current wound care. Abx adjusted to Unasyn only. Continue IV abx. (6) Altered mental status: Qualifiers: Altered mental status type: disorientation Qualified Code(s): R41.0 - Disorientation, unspecified Code(s): R41.82 - Altered mental status, unspecified Status: Acute Assessment and Plan: CT brain showing old encephalomalacia but no acute findings. Acute metabolic encephalopathy likely secondary to severe hyponatremia. Can not exclude related to sepsis but felt less likely. Mental status improved. Contineu to monitor closely. Continue supportive care. (7) Peripheral vascular disease: Onset Date: 07/24/12 Code(s): I73.9 - Peripheral vascular disease, unspecified Status: Acute Assessment and Plan: Patient is status post right AKA. Evaluation as above. Fall precautions when he is up. PT/OT ordered. Will request old records from [place]. (8) Alcohol dependence: Code(s): F10.20 - Alcohol dependence, uncomplicated Status: Acute Assessment and Plan: Patient drinks roughly 15 beers a day. No evidence of withdrawal. Continue Thiamine and Folate. Ativan available prn for withdrawal symptoms but has not required this. Monitor for withdrawal symptoms. (9) Intractable nausea and vomiting: Code(s): R11.2 - Nausea with vomiting, unspecified Status: Acute Assessment and Plan: CT of abdomen and pelvis reviewed showing only thickened bladder. Etiology unclear but appears to be improved. Tolerating clear liquid diet. Advance as he toelrates. (10) DVT prophylaxis: Code(s): Z29.9 - Encounter for prophylactic measures, unspecified Status: Acute Assessment and Plan: Lovenox Subjective Date/time seen: 02/27/21 09:47 Interval history: 60yo male with PAD s/p right AKA, alcoholism and HTN here for altered mental status and found to have a sod
[2021-02-27 16:46] LABS: Anion Gap 10 mmol/L (8-16); Blood Urea Nitrogen 10 mg/dL (9-20); Calcium 8.8 mg/dL (8.4-10.2); Carbon Dioxide 26 mmol/L (22-30); Chloride 87 mmol/L (98-107); Estimated CRCL calculation 152 ml/min; Estimated Glomerular Filt Rate > 60; Glucose 126 mg/dL (75-110); Potassium 3.9 mmol/L (3.4-5.0); Sodium 123 mmol/L (137-145)
--- NOTE | 2021-02-27 18:17 | PC.NURSE ---
This patient, Jack De Oliveira, was received from [ ICU ] on 02/27/21 at 1817. Patient/family oriented to unit policies and routines
[2021-02-27 21:17] LABS: Albumin 2.8 g/dL (3.8-4.8); Alpha 1 Globulin 0.4 g/dL (0.2-0.3); Alpha 2 Globulin 0.6 g/dL (0.5-0.9); Beta 1 Globulin 0.4 g/dL (0.4-0.6); Gamma Globulin 0.7 g/dL (0.8-1.7); Protein, Total 5.3 g/dL (6.1-8.1)
[2021-02-28] VITALS (16 sets, daily range): BP systolic 114–195; BP diastolic 48–74; PULSE 78–115; RESP 16–18; TEMP 36.1–37.1; O2SAT 91–98
[2021-02-28] MEDS: HYDROcodone/acetaminophen (*CRX) 10-325 MG TABLET 1 TAB PO ×3 (03:38→23:36)
[2021-02-28 05:06] LABS: Hematocrit 32.7 % (42.0-52.0); Hemoglobin 11.8 g/dL (14.0-18.0); Mean Corpuscular HGB Conc 36.1 g/dl (32-36); Mean Corpuscular Hemoglobin 34.4 pg (26-34); Mean Corpuscular Volume 95.3 fl (80-100); Mean Platelet Volume 9.7 fl (7.4-10.4); Platelet Count Result 289 k/mm3 (150-375); Red Blood Count 3.43 M/mm3 (4.6-6.20); Red Cell Distribution Width 11.6 % (11.5-14.5); White Blood Count 13.6 K/mm3 (4.5-10.0)
[2021-02-28 05:38] LABS: Alanine Aminotransferase 48 U/L (4-50); Albumin Level 2.8 g/dL (3.5-5.1); Alkaline Phosphatase 112 U/L (38-126); Anion Gap 6 mmol/L (8-16); Aspartate Amino Transferase 55 U/L (17-59); Bilirubin,Total 0.9 mg/dL (0.2-1.3); Blood Urea Nitrogen 7 mg/dL (9-20); Carbon Dioxide 26 mmol/L (22-30); Chloride 87 mmol/L (98-107); Estimated CRCL calculation 142 ml/min; Estimated Glomerular Filt Rate > 60; Glucose 114 mg/dL (75-110); Magnesium 1.6 mg/dL (1.6-2.3); Potassium 3.7 mmol/L (3.4-5.0); Sodium 119 mmol/L (137-145)
[2021-02-28] MEDS: AMPICILLIN SULB 3 GM/NS 100 ML 3 GM/100 ML VIAL IVPB ×4 (05:58→23:18)
[2021-02-28] MEDS: FOLIC ACID 1 MG/0.2 ML INJ IV PUSH (08:17)
[2021-02-28] MEDS: THIAMINE HCL 200 MG/2 ML VIAL 100 MG IV PUSH (08:17)
[2021-02-28] MEDS: ENOXAPARIN 40 MG/0.4 ML SYRINGE SUB-Q (08:18)
--- NOTE | 2021-02-28 08:45 | PM.PNNEP ---
Progress Note: A&P Assessment and Plan (1) Hyponatremia: Code(s): E87.1 - Hypo-osmolality and hyponatremia Status: Acute Assessment and Plan: sodium level was very low. Early on auto corrected but that was compensated for by DDAVP and free water. Recently sodium has been correcting at an appropriate rate. 02/24 Na 113 / Na 116 / Na 123 /14 Na 126 /15 Na 119!! 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 Will resume fluid restriction now. Try salt tablets and furosemide. I do not think he will auto correct. Check a sodium this afternoon. (2) Cellulitis of left lower extremity: Code(s): L03.116 - Cellulitis of left lower limb Status: Acute Assessment and Plan: The patient is getting antibiotics. Cultures negative so far (3) Intractable nausea and vomiting: Code(s): R11.2 - Nausea with vomiting, unspecified Status: Acute Assessment and Plan: Patient is better, tolerating his diet. (4) Alcohol dependence: Code(s): F10.20 - Alcohol dependence, uncomplicated Status: Acute Assessment and Plan: The patient is getting thiamine (5) Sepsis: Code(s): A41.9 - Sepsis, unspecified organism Status: Acute Assessment and Plan: the patient is on antibiotics His leg looks suspect for the source. he also has a postiive UCx. (6) Altered mental status: Qualifiers: Altered mental status type: disorientation Qualified Code(s): R41.0 - Disorientation, unspecified Code(s): R41.82 - Altered mental status, unspecified Status: Acute Assessment and Plan: improved. (7) SIRS (systemic inflammatory response syndrome): Code(s): R65.10 - Systemic inflammatory response syndrome (SIRS) of non-infectious origin without acute organ dysfunction Status: Acute Assessment and Plan: Lactic acid is okay (8) Peripheral vascular disease: Onset Date: 07/24/12 Code(s): I73.9 - Peripheral vascular disease, unspecified Status: Acute Assessment and Plan: status post right [id number] amputation Subjective Date/time seen: 02/28/21 08:45 Interval history: Feels okay today. Sitting up at the side of the bed. Somehow he had of fluid in yesterday (2L by mouth). He is on a 1000cc fluid restriction. I talked with nursing. It might have been because he transferred out of the ICU and onto the floor. Exam Narrative: Exam Narrative: WDWN in NAD skin no rash head ncat lungs clear Bilaterally cor reg no rub or gallop abd BS+ nontender and soft ext no edema. right sided amputation. Left foot has eschars and erythema. Bruise on the lateral left calf. An eschar has formed. Objective Data Vital Signs Vital Signs: Vital Signs - 24 hr 02/27/21 09:49 02/27/21 09:58 02/27/21 11:22 Temperature Pulse Rate 97 115 H 103 H Respiratory Rate 20 24 H Blood Pressure Pulse Oximetry 94 94 02/27/21 12:00 02/27/21 14:09 02/27/21 14:53 Temperature 37.1 C Pulse Rate 104 H 106 H 105 H Respiratory Rate 21 H 20 Blood Pressure 92/73 L Pulse Oximetry 98 97 02/27/21 15:32 02/27/21 16:00 02/27/21 16:57 Temperature 36.9 C Pulse Rate 114 H 106 H Respiratory Rate 22 H 26 H Blood Pressure 102/72 Pulse Oximetry 94 94 02/27/21 17:56 02/27/21 19:44 02/27/21 20:00 Temperature 36.3 C L Pulse Rate 108 H 104 H 106 H Respiratory Rate 20 20 Blood Pressure 162/61 H Pulse Oximetry 93 93 02/27/21 22:00 02/27/21 23:32 02/27/21 23:40 Temperature 37.3 C Pulse Rate 110 H 104 H Respiratory Rate 16 Blood Pressure 178/65 H Pulse Oximetry 94 98 02/28/21 00:00 02/28/21 02:00 02/28/21 04:00 Temperature 36.2 C L Pulse Rate 103 H 91 98 Respiratory Rate 16 16 Blood Pressure 195/65 H Pulse Oximetry 98 95 02/28/21 06:00 02/28/21 07:58 Temperature 36.3 C L Pulse Rate 8
[2021-02-28] MEDS: ALBUTEROL SULFATE (*SP) AEROSOL 1 PUFF 2 PUFF INHALATION ×3 (08:54→20:12)
[2021-02-28] MEDS: FUROSEMIDE 20 MG TABLET PO ×2 (09:11→17:00)
[2021-02-28] MEDS: SODIUM CHLORIDE 1 GM TABLET PO ×2 (09:11→17:00)
--- NOTE | 2021-02-28 13:35 | PM.IMPN ---
Progress Note: A&P Assessment and Plan (1) Sepsis: Code(s): A41.9 - Sepsis, unspecified organism Status: Acute Assessment and Plan: Present on admission with tachycardia, tachypnea and leukocytosis. UA noted. BCx and UCx collected. Initial CXR clear but repeat showing bilateral reticulation. CT of abdomen and pelvis showing thickened bladder. Source likely to be left lower extremity cellulitis, PNA and/or UTI. UCx growing Enterococcus with sensitivities pending. BCx NGTD. Continue Unasyn. (2) Pneumonia: Code(s): J18.9 - Pneumonia, unspecified organism Status: Acute Assessment and Plan: CXR clear on admission but with increased reticulation on repeat CXR. Most likely aspiration PNA. Blood culture NGTD. Patient is on Unasyn. Will continue the same. Currently on room air. Lasix started. Repeat CXR in 1-2 days (3) UTI (urinary tract infection): Code(s): N39.0 - Urinary tract infection, site not specified Status: Acute Assessment and Plan: As above. (4) Acute hyponatremia: Code(s): E87.1 - Hypo-osmolality and hyponatremia Status: Acute Assessment and Plan: Na 108 on admission. Patient drinks roughly 15 beers a day but also has been having nausea and vomiting daily. TSH normal but Cortisol level elevated probably from stress response. He received 6hours of 3% NS and Na climbed to 112. IV fluids stopped. Nephrology following and managing the hyponatremia. Na was up to 126 with improvement of his mental status but has dropped to 119 possibly related to excessive free water. Continue fluid restriction placed. Continue to monitor with BMPs. (5) Cellulitis of left lower extremity: Code(s): L03.116 - Cellulitis of left lower limb Status: Acute Assessment and Plan: Patient with possibly cellulitis to the LLE but consider ischemia as well. LA normal. Venous Doppler of left lower extremity negative. Arterial doppler showing moderate to large amount of left common femoral plaque extending into proximal aspect of patent femoral graft, which is supplying peroneal and anterior tibial arteries. Continue current wound care. Continue Unasyn only. Check CTA of the left leg (6) Altered mental status: Qualifiers: Altered mental status type: disorientation Qualified Code(s): R41.0 - Disorientation, unspecified Code(s): R41.82 - Altered mental status, unspecified Status: Acute Assessment and Plan: CT brain showing old encephalomalacia but no acute findings. Acute metabolic encephalopathy likely secondary to severe hyponatremia. Can not exclude related to sepsis but felt less likely. Mental status improved. Continue to monitor closely. Continue supportive care. (7) Peripheral vascular disease: Onset Date: 07/24/12 Code(s): I73.9 - Peripheral vascular disease, unspecified Status: Acute Assessment and Plan: Patient is status post right AKA and with surgical revascularization to the LLE. Fall precautions when he is up. Continue PT/OT. Evaluation as above. (8) Alcohol dependence: Code(s): F10.20 - Alcohol dependence, uncomplicated Status: Acute Assessment and Plan: Patient drinks roughly 15 beers a day. No evidence of withdrawal. Continue Thiamine and Folate. Ativan available prn for withdrawal symptoms but has not required this. Continue to monitor. (9) Intractable nausea and vomiting: Code(s): R11.2 - Nausea with vomiting, unspecified Status: Acute Assessment and Plan: CT of abdomen and pelvis reviewed showing only thickened bladder. Etiology unclear but appears to have resolved. Tolerating low sodium diet. Change to heart health. Follow. (10) DVT prophylaxis: Code(s): Z29.9 - Encounter for prophylactic measures, unspecified Status: Acute Assessment and Plan: Lovenox Subjective
[2021-02-28 16:49] LABS: Anion Gap 8 mmol/L (8-16); Blood Urea Nitrogen 10 mg/dL (9-20); Calcium 8.5 mg/dL (8.4-10.2); Carbon Dioxide 31 mmol/L (22-30); Chloride 87 mmol/L (98-107); Estimated CRCL calculation 117 ml/min; Estimated Glomerular Filt Rate > 60; Glucose 118 mg/dL (75-110); Potassium 3.6 mmol/L (3.4-5.0); Sodium 126 mmol/L (137-145)
[2021-02-28] MEDS: DEXTROSE 5% IN WATER 500 ML 200 ML IV CONT (17:18)
[2021-02-28 20:41] LABS: Anion Gap 10 mmol/L (8-16); Blood Urea Nitrogen 9 mg/dL (9-20); Calcium 8.1 mg/dL (8.4-10.2); Carbon Dioxide 25 mmol/L (22-30); Chloride 88 mmol/L (98-107); Estimated CRCL calculation 142 ml/min; Estimated Glomerular Filt Rate > 60; Glucose 114 mg/dL (75-110); Potassium 3.5 mmol/L (3.4-5.0); Sodium 123 mmol/L (137-145)
[2021-03-01] VITALS (7 sets, daily range): BP systolic 133–171; BP diastolic 53–59; PULSE 85–100; RESP 16–19; TEMP 36.6–37.1; O2SAT 92–97
[2021-03-01 05:07] LABS: Hematocrit 32.3 % (42.0-52.0); Hemoglobin 11.6 g/dL (14.0-18.0); Mean Corpuscular HGB Conc 35.9 g/dl (32-36); Mean Corpuscular Hemoglobin 34.4 pg (26-34); Mean Corpuscular Volume 95.8 fl (80-100); Mean Platelet Volume 9.4 fl (7.4-10.4); Platelet Count Result 317 k/mm3 (150-375); Red Blood Count 3.37 M/mm3 (4.6-6.20); Red Cell Distribution Width 11.9 % (11.5-14.5); White Blood Count 11.7 K/mm3 (4.5-10.0)
[2021-03-01] MEDS: AMPICILLIN SULB 3 GM/NS 100 ML 3 GM/100 ML VIAL IVPB (05:27)
[2021-03-01 05:30] LABS: Alanine Aminotransferase 44 U/L (4-50); Alkaline Phosphatase 115 U/L (38-126); Anion Gap 9 mmol/L (8-16); Aspartate Amino Transferase 54 U/L (17-59); Bilirubin,Total 0.7 mg/dL (0.2-1.3); Blood Urea Nitrogen 8 mg/dL (9-20); Calcium 8.2 mg/dL (8.4-10.2); Carbon Dioxide 28 mmol/L (22-30); Chloride 87 mmol/L (98-107); Estimated CRCL calculation 138 ml/min; Estimated Glomerular Filt Rate > 60; Glucose 101 mg/dL (75-110); Magnesium 1.6 mg/dL (1.6-2.3); Phosphorus 3.8 mg/dL (2.5-4.5); Potassium 3.2 mmol/L (3.4-5.0); Sodium 124 mmol/L (137-145)
[2021-03-01] MEDS: ENOXAPARIN 40 MG/0.4 ML SYRINGE SUB-Q (08:34)
[2021-03-01] MEDS: SODIUM CHLORIDE 1 GM TABLET PO (08:34)
[2021-03-01] MEDS: MAGNESIUM SULF 2 GM/WATER 50ML 2 GM/50 ML BAG IVPB (08:34)
[2021-03-01] MEDS: POTASSIUM CHLORIDE 20 MEQ TABLET 40 MEQ PO (08:34)
[2021-03-01] MEDS: FUROSEMIDE 20 MG TABLET PO (08:34)
[2021-03-01] MEDS: THIAMINE HCL 200 MG/2 ML VIAL 100 MG IV PUSH (08:34)
[2021-03-01] MEDS: FOLIC ACID 1 MG/0.2 ML INJ IV PUSH (08:35)
[2021-03-01] MEDS: HYDROcodone/acetaminophen (*CRX) 10-325 MG TABLET 1 TAB PO (08:41)
--- NOTE | 2021-03-01 10:03 | PCPTNOTE ---
The patient treatment was not able to be completed on 03-01-2021 due to patient refusing this am. Patient stated feeling tired, has a full belly from breakfast and wants to rest. Therapist encouraged patient to participate in therapy session with lower extremity exercise. Patient continued to refuse for AM. Patient stated will try in PM. R.N informed. Will plan to continue treatment per plan of care.
[2021-03-01 11:01] LABS: EDCOVIDSCREEN Negative (Negative)
--- NOTE | 2021-03-01 11:46 | PM.TDS ---
Transfer Discharge Sum: Prov Provider Date of admission: 02/23/21 22:29 Primary care physician: [facility] Admitting clinician: Ashok Devlin MD Consults: 02/23/21 22:33 Consult to Physician Routine Comment: Consulting Provider: Benedicto Xavier Reason for consultation: Hyponatremia Has provider been notified: Yes Consult to Physician Routine Comment: Consulting Provider: Ta Garcia Reason for consultation: Hyponatremia, altered mental status Has provider been notified: Yes 02/24/21 Wound/ET Consult Routine Reason for Consult:: left foot and leg wounds Discharging clinician: Fernie Gill Anticipated date of transfer: 03/01/21 Receiving physician/facility: [facility] DS: Admitting Diagnosis Admitting Diagnosis Admitting Diagnosis: Altered Mental status DS: Discharge Diagnosis Discharge Diagnosis (1) Sepsis: Code(s): A41.9 - Sepsis, unspecified organism Status: Acute Assessment and Plan: Present on admission with tachycardia, tachypnea and leukocytosis. UA noted. BCx and UCx collected. Initial CXR clear but repeat showing bilateral reticulation. CT of abdomen and pelvis showing thickened bladder. Source of infection likely to be left lower extremity cellulitis, PNA and/or UTI. UCx growing Enterococcus with sensitive to Ampicillin. BCx NGTD. (2) Pneumonia: Code(s): J18.9 - Pneumonia, unspecified organism Status: Acute Assessment and Plan: CXR clear on admission but developed increased reticulation on repeat CXR. Given that he was found down and with the nausea/vomiting, there was concern for aspiration pneumonia. Blood culture NGTD. Patient was on Unasyn and Vancomycin but narrowed just to Unasyn. Weaned to room air. (3) Acute hyponatremia: Code(s): E87.1 - Hypo-osmolality and hyponatremia Status: Acute Assessment and Plan: Na 108 on admission. Patient drinks roughly 15 beers a day but also has been having nausea and vomiting daily. TSH normal but Cortisol level elevated probably from stress response. He received 6hours of 3% NS and Na climbed to 112. IV fluids stopped. Nephrology following and managing the hyponatremia. Na was up to 126 prior to transfer with improvement of his mental status. (4) Peripheral vascular disease: Onset Date: 07/24/12 Code(s): I73.9 - Peripheral vascular disease, unspecified Status: Acute Assessment and Plan: Patient is status post right AKA and with surgical revascularization to the LLE performed at [place]. Old records requested but unable to obtain. Fall precautions when he was up. He worked with PT/OT. Concern for ischemic LLE. Lactic acid was normal. Arterial doppler showing moderate to large amount of left common femoral plaque extending into proximal aspect of patent femoral graft, which is supplying peroneal and anterior tibial arteries. He was treated with appropriate wound care. CTA of the left leg performed once he was more stable. This showed a patent left SFA stent, a severe short segment stenosis of the common femoral just proximal to a femoropopliteal bypass graft and a moderate short segment popliteal stenosis. I spoke with a vascular surgeon to discuss possible limb salvage procedures. He was not confident that the leg could be saved but agreed to accepted the patient in transfer (with admission to the hospitalist service). Kusum was transferred to [facility] in stable condition on 03/01/21 (discussed with hospitalist as well) (5) UTI (urinary tract infection): Code(s): N39.0 - Urinary tract infection, site not specified Status: Acute Assessment and Plan: As above. (6) Cellulitis of left lower extremity: Code(s): L03.116 - Cellulitis of left lower limb Status: Acute Assessment and Plan: Patient felt to have cellulitis to the LLE treated with antibiotics.
[2021-03-01 12:17] LABS: Sodium 126 mmol/L (137-145)
--- NOTE | 2021-03-01 12:40 | PC.NURSE ---
Pt transferred via [facility] to [place] [id number] for vascular surgery consultation. Report called to DAMARIS Doss @ [phone]. Ampicillin IVPB sent with EMS to be given in route. Family notified of transfer. Belongings sent with patient.
== END 2021-03-01 12:45 | disposition short-term general hospital (02) | DRG 871 ==
LOC: ANHED 22:53 → ANHICU 02-24 02:14 → ANHIMU 03-01 09:18 → ANHICU 03-02 16:43 → ANHIMU 03-02 16:43
PROVIDERS: Emergency Medicine; Internal Medicine; Internal Medicine Nephrology; Admitting Provider Internal Medicine; Emergency Provider Family Medicine; Visit Provider Internal Medicine
DX: A41.9 Sepsis, unspecified organism (principal); G93.41 Metabolic encephalopathy; J69.0 Pneumonitis due to inhalation of food and vomit; L03.116 Cellulitis of left lower limb; E87.1 Hypo-osmolality and hyponatremia; N39.0 Urinary tract infection, site not specified; Z20.822 Contact with and (suspected) exposure to COVID-19; B95.2 Enterococcus as the cause of diseases classified elsewhere; E86.0 Dehydration; I73.9 Peripheral vascular disease, unspecified; F10.20 Alcohol dependence, uncomplicated; Z89.611 Acquired absence of right leg above knee
CPT/HCPCS: 36415; 36600; 70450; 71045; 73706; 74176; 80048; 80053; 80202; 80307; 81001; 82140; 82533; 82805; 83605; 83735; 83880; 83930; 83935; 84100; 84155; 84165; 84295; 84443; 84484; 85025; 85027; 85610; 87040; 87077; 87086; 87088; 87186; 87426; 93005; 93306; 93926; 93971; 94640; 97110; 97161; 97166; 97530; 97535; 99285; A9270; C9803; J0295; J1630; J1650; J2060; J2405; J2543; J2597; J3370; J3411; J3475; J3480; J7030; J7040; J7050; J7060; J7121; J7131; Q9967

== ENCOUNTER 2021-05-29 19:10 | Emergency (ER) | payer MEDICARE, MEDICAID, SELFPAY ==
--- NOTE | ~2021-05-29 | XR_ITS ---
XR femur LT min 2V DATE: 05/29/2021 22:37 INDICATION: Stump wound TECHNIQUE: AP and lateral views COMPARISON: None FINDINGS: There is amputation of the mid to distal shaft of the femur. No periosteal reaction or bone destruction is evident. There is extensive calcification of the femoral and deep femoral arteries. No apparent subcutaneous emphysema. IMPRESSION: [id number]-[id number]-[id number] amputation Reviewed, dictated and finalized at location A. IMPRESSION: Mmvoj-pul-wvpo amputation
[2021-05-29 19:23] VITALS: BP 149/77; PULSE 87; RESP 16; TEMP 36.6; O2SAT 95
[2021-05-29 20:24] VITALS: BP 148/77; PULSE 87; RESP 18; TEMP 36.6; O2SAT 99
[2021-05-29 20:31] LABS: Basophils Absolute Auto 0.1 K/mm3 (0.0-0.1); Basophils Percent Auto 1.1 % (0.2-1.2); Eosinophils Absolute Auto 0.5 K/mm3 (0-0.3); Eosinophils Percent Auto 4.2 % (0-4.4); Immature Granulocyte Absolute 0.02 K/mm3 (0.00-0.031); Immature Granulocyte Percent A 0.2 % (0-0.5); Lymphocytes Absolute Auto 3.31 K/mm3 (0.9-3.2); Lymphocytes Percent Auto 30.1 % (18.3-44.2); Mean Corpuscular HGB Conc 34.9 g/dl (32-36); Mean Corpuscular Hemoglobin 33.6 pg (26-34); Mean Corpuscular Volume 96.4 fl (80-100); Mean Platelet Volume 9.3 fl (7.4-10.4); Monocytes Absolute Auto 1.2 K/mm3 (0.1-0.6); Monocytes Percent Auto 10.9 % (2.6-8.5); Neutrophils Absolute Auto 5.9 K/mm3 (1.3-6.7); Neutrophils Percent Auto 53.5 % (45.5-73.1); Platelet Count Result 270 k/mm3 (150-375); Red Blood Count 4.46 M/mm3 (4.6-6.20); Red Cell Distribution Width 13.2 % (11.5-14.5)
[2021-05-29 20:42] LABS: Alanine Aminotransferase 26 U/L (4-50); Albumin Level 4.2 g/dL (3.5-5.1); Alkaline Phosphatase 126 U/L (38-126); Anion Gap 13 mmol/L (8-16); Aspartate Amino Transferase 39 U/L (17-59); Bilirubin,Total 0.4 mg/dL (0.2-1.3); Blood Urea Nitrogen 5 mg/dL (9-20); Carbon Dioxide 19 mmol/L (22-30); Chloride 96 mmol/L (98-107); Estimated Glomerular Filt Rate > 60; Glucose 90 mg/dL (65-110); Potassium 4.4 mmol/L (3.4-5.0); Sodium 128 mmol/L (137-145)
[2021-05-29 20:43] LABS: Lactic Acid Reflex 1.3 mmol/L (0.7-2.1)
[2021-05-29 22:41] VITALS: BP 108/70; PULSE 78; RESP 19; O2SAT 99
--- NOTE | 2021-05-29 23:08 | ED.GENADULT ---
HPI - General Adult General Chief complaint: Extremity Injury, Lower Stated complaint: Maggots in my wound Time Seen by Provider: 05/29/21 21:58 History of Present Illness HPI narrative: Patient 61-year-old gentleman who presents the emergency department with chief complaint of maggots in the wound. Patient states that he had a above-knee amputation on his left lower extremity and is followed by Dr. Mao at [facility]. Patient states that he had seen Dr. Mao in the office and was given oral antibiotic and a topical skin cream to help with granulation tissue. Patient states that he noticed the area opened up today and noticed there was redness and some pus draining out of the wound the patient also noticed that there were maggots crawling around in the wound. Patient denies fever denies chills denies chest pain or shortness of breath. Related Data Home Medications Medication Instructions Recorded Confirmed hydrocodone-acetaminophen 1 tablet PO Q4-6H PRN 05/29/21 05/29/21 sulfamethoxazole-trimethoprim 1 tablet PO BID 05/29/21 Allergies Allergy/AdvReac Type Severity Reaction Status Date / Time No Known Allergies Allergy Unknown Unverified 10/25/18 12:39 Review of Systems Review of Systems: A 10 system review of systems was completed on the patient and is negative except for what is stated in the HPI. Nursing and ancillary documentation was reviewed. [facility] Past Medical History Medical History HTN (hypertension) (07/24/12) Hyponatremia Leg pain (01/29/14) Peripheral vascular disease (07/24/12) Surgical History Surgical History History of revascularization procedure of lower extremity Social History Social History Smoking status: Unknown if ever smoked Alcohol intake: current Drinks per week: 70 Substance use: unknown Sexual Orientation (if Verbalized by the Patient): Straight or Heterosexual Spiritual care concerns: No Exam Narrative: GENERAL: Well-appearing, well-nourished, and in no acute distress. HEAD: Normocephalic, atraumatic. EYES: PERRLA and EOMI. ENT: Nares clear, no rhinorrhea or epistaxis. Mucous membranes moist. NECK: Supple. CHEST: Clear to auscultation. No respiratory distress. HEART: Regular rate and rhythm. No murmur heard. Normal peripheral pulses. ABDOMEN: Soft, nontender, nondistended, normal active bowel sounds. EXTREMITIES: Normal range of motion. There are bilateral AKA's there is a area of erythema and open wound in the stump of the left lower extremity with purulent drainage and there appear to be maggots in the wound. No edema. SKIN: Warm, dry, no rash. NEURO: No focal deficits. Alert and oriented x3. PSYCH: Normal mood and affect. Course Course Emergency Course: Patient is not showing signs of severe sepsis at this point. Patient was empirically started on vancomycin and Zosyn the case was discussed with the on-call vascular surgeon at [facility] and the patient was accepted to the hospitalist service with Dr. Rehman excepting Vital Signs Vital signs: Vital Signs Temperature 36.6 C 05/29/21 19:23 Pulse Rate 87 05/29/21 19:23 Respiratory Rate 16 05/29/21 19:23 Blood Pressure 149/77 H 05/29/21 19:23 Pulse Oximetry 95 05/29/21 19:23 Temperature 36.6 C 05/29/21 20:24 Pulse Rate 78 05/29/21 22:41 Respiratory Rate 198 H 05/29/21 22:41 Blood Pressure 108/70 05/29/21 22:41 Pulse Oximetry 99 05/29/21 22:41 Transfer Transfered to: [facility] Transfer rationale: Continuation of care Accepting physician: [facility] Decision Making Vital Signs Vital Signs: Vital Signs Temperature 36.6 C 05/29/21 19:23 Pulse Rate 87 05/29/21 19:23 Respiratory Rate 16 05/29/21 19:23 Blood Pressure 149/77 H
--- NOTE | 2021-05-29 23:15 | PC.NURSE ---
update from Pat at [place] transfer line. Bed has been requested however it will be in the AM before one is assigned.
--- NOTE | 2021-05-29 23:16 | PC.NURSE ---
Assumed care of pt at this time, pt is alert and upright, discussed POC. Son at bedside. VSS.
[2021-05-29 23:33] LABS: EDCOVIDSCREEN Negative (Negative)
[2021-05-30] VITALS (7 sets, daily range): BP systolic 100–165; BP diastolic 61–85; PULSE 76–88; RESP 14–17; O2SAT 97–100
--- NOTE | 2021-05-30 11:36 | PC.NURSE ---
Report given to Natalia OCAMPO at [facility], room 143 (Center), at this time. ALS transport in route to take patient.
== END 2021-05-30 11:46 | disposition short-term general hospital (02) ==
PROVIDERS: Family Medicine; Emergency Provider Emergency Medicine
DX: T87.44 Infection of amputation stump, left lower extremity (principal); Z20.822 Contact with and (suspected) exposure to COVID-19; I10 Essential (primary) hypertension; I73.9 Peripheral vascular disease, unspecified
CPT/HCPCS: 36415; 73552; 80053; 83605; 85025; 87040; 87070; 87205; 87426; 96365; 96366; 96367; 99285; C9803; J2543; J3370

== ENCOUNTER 2021-10-09 20:17 | Inpatient (IN) | payer MEDICARE, MEDICAID, SELFPAY ==
[2021-10-09] VITALS (12 sets, daily range): BP systolic 67–101; BP diastolic 54–78; PULSE 102–180; RESP 16–18; TEMP 37.4; O2SAT 95–100
--- NOTE | ~2021-10-09 | CT_ITS ---
EXAMINATION: CT brain wo con DATE: 10/09/2021 20:44 INDICATION: Left-sided weakness, left hemiparesis, onset today. Confusion. TECHNIQUE: Computed tomography (CT) of the head was performed without intravenous contrast. The mA wa s adjusted according to patient size. Iterative reconstruction technique was employed. Exam dose: 60 5.33 mGy-cm total exam DLP. COMPARISON: 02/23/2021 CT brain FINDINGS: There are prominent bilateral carotid siphon internal carotid artery calcifications. There is nonspecific diminished attenuation of the cerebral white matter, likely due to chronic small vesse l ischemic change. There is a small old infarct high over the left parietal convexity in the watershed area. There is an other larger chronic infarct in the left frontal area. There is central and cortical cerebral and cerebellar atrophy. No intracranial mass lesion or hemorrhage or recent cerebrovascular accident is evident. CT is not se nsitive for detection of hyperacute nonhemorrhagic infarct. No midline shift or mass effect. No subdural or epidural hematoma is detected. 8.5 x 10.5 mm subcutaneous cystic lesion is noted in the left lateral facial area. No orbital mass le annette. There is some soft tissue thickening of the ethmoid air cells and minimal posterior left maxillary si nus soft tissue thickening or fluid. The paranasal sinuses and mastoid air cells are otherwise unrema rkable. No fracture or bone destruction of the cranial vault. IMPRESSION: Cerebral atherosclerosis and chronic small vessel ischemic changes of the cerebral white matter Small focal old watershed infarct high over the left parietal convexity Old left frontal infarct No acute intracranial finding or hemorrhage is detected Dr. Corral telephoned the report on 10/05/2021 at 2058 hours to emergency room physician Dr. Eugene. Reviewed, dictated and finalized at [facility]. Reviewed, dictated and finalized at location [facility]. IAL FORCES OFFICER IMPRESSION: Cerebral atherosclerosis and chronic small vessel ischemic changes of the cerebral white matter Small focal old watershed infarct high over the left parietal convexity Old left frontal infarct No acute intracranial finding or hemorrhage is detected Dr. Corral telephoned the report on 10/05/2021 at 2058 hours to emergency room alex Eugene.
--- NOTE | ~2021-10-09 | CT_ITS ---
EXAMINATION: CT brain wo con DATE: 10/11/2021 12:38 INDICATION: Cognitive decline. Hallucinations. Altered mental status. TECHNIQUE: Computed tomography (CT) of the head was performed without intravenous contrast. The dose- length product was 529.67 mGy-cm. Automated exposure control and iterative reconstruction technique w ere employed. COMPARISON: CT dated 10/07/2021 and 10/09/2021 FINDINGS: Generalized atrophy. There is an age-indeterminate right frontal lobe infarction near the v ertex. There is a chronic left frontal lobe infarction. No ventriculomegaly or midline shift. Basilar cisterns are patent. There is intracranial atherosclerosis. No intracranial hemorrhage is identified . There is mild mucosal thickening of the ethmoid sinuses. Mastoids are pneumatized. No depressed sku ll fractures. There are scattered mild periventricular and subcortical white matter changes, most lik nanci related to small vessel ischemic disease (microangiopathy). IMPRESSION: 1. Acute/subacute right frontal lobe infarction. No significant mass effect or intracranial hemorrhag e. Recommend correlation with MRI. 2: Chronic left frontal lobe infarction. Reviewed, dictated and finalized at [facility]. EQUIPMENT ENGINE MECHANIC IMPRESSION: 1. Acute/subacute right frontal lobe infarction. No significant mass effect or intracranial hemorrhage. Recommend correlation with MRI. 2: Chronic left frontal lobe infarction.
--- NOTE | ~2021-10-09 | CT_ITS ---
EXAMINATION: CTA brain carotid EXAM DATE: 10/09/2021 21:47 INDICATION: Left hemiparesis LT keyur paresis. TECHNIQUE: Spiral CTA of the carotid arteries was performed with intravenous injection 100 cc of Om nipaque 350. Axial, coronal, sagittal reformatted images reviewed. Additional reformatted images cre ated on dedicated 3-D workstation. NASCET comparable standard used to assess the degree of arterial stenosis. Spiral CT angiogram cerebral arteries performed with the same intravenous injection of con trast. Source images of the brain CTA transferred to dedicated workstation for 3-D rotational image c reation. Coronal, sagittal maximum intensity pixel images also reviewed. The dose-length product (D LP) for this examination was 892.91 mGy-cm. The exposure was tailored according to patient size, an d iterative reconstruction (ASIR) was used as additional dose reduction technique. Correlation is mad e to noncontrast head CT from earlier on 10/09/2020. FINDINGS: Origins of the brachiocephalic, left common, left subclavian arteries not imaged. Left dist al common carotid artery string sign for about 2 cm segment, near occlusion causing diminished calibe r to the internal carotid artery distal to this. There is large amount of left carotid bifurcation an d bulb plaque, with distal reference point artificially narrowed due to limited flow from the common carotid stenosis. On the right side there is focal region of moderate common carotid artery arteriosc lerosis with 50% stenosis. There is moderate carotid bulb arterial sclerosis with 40% stenosis. Circumferential mild narrowing of both carotid siphons from arterial sclerosis. The vertebral arterie s are codominant. The cerebral arteries have symmetric arborization. No cerebral artery aneurysm. No sagittal venous sinus thrombosis. Incidental findings: Mild bilateral ethmoid mucoperiosteal thickening. No sinus air-fluid levels. Mod erate cervical spondylosis. IMPRESSION: 1. Left common carotid near occlusion (string sign) just proximal to the bifurcation. Diminutive ICA caliber distal to this flow limiting stenosis. Additional extensive carotid bulb arterial sclerosis. 2. Right mid common carotid 50% stenosis, additional carotid bulb 40% stenosis. Reviewed, dictated and finalized at location [facility]. ETING LEAD IMPRESSION: 1. Left common carotid near occlusion (string sign) just proximal to the bifur cation. Diminutive ICA caliber distal to this flow limiting stenosis. Additiona l extensive carotid bulb arterial sclerosis. 2. Right mid common carotid 50% stenosis, additional carotid bulb 40% stenosis .
--- NOTE | ~2021-10-09 | XR_ITS ---
XR chest 1V portable DATE: 10/09/2021 20:57 INDICATION: Supraventricular tachycardia. Hemiparesis. TECHNIQUE: Portable AP chest on 10/05/2021 at 2057 hours COMPARISON: 03/01/2021 portable AP chest FINDINGS: Normal heart size. Aortic arch calcification. There is minimal atelectasis at the lung bases. The lungs otherwise appear clear. No pleural effusion or pulmonary vascular congestion or pneumothorax. IMPRESSION: Minimal atelectasis at the lung bases Reviewed, dictated and finalized at location [facility]. GRATION MANAGER
--- NOTE | 2021-10-09 20:21 | ECG_ITS ---
Measurements Intervals [place] Rate: 172 P: [place]: 0 QRS: 64 QRSD: 81 T: 65 QT: 264 QTc: 447 Interpretive Statements SUPRAVENTRICULAR TACHYCARDIA, CONSIDER ATRIAL TACHYCARDIA ST ABNORMALITY IN ANTEROLAT/INF LEADS- CONSIDER ISCHEMIA OR RATE RELATED BASELINE ARTIFACT- I, II, AVR, AVL, AVF, V1, V6 ABNORMAL ECG Electronically Signed On 10-09-2021 21:10:01 REFRIGERATION MECHANIC by Ruben Bloom D.O.
[2021-10-09] MEDS: SODIUM CHLORIDE 0.9% IV 1,000 ML 999 ML IV CONT ×2 (20:25→21:38)
[2021-10-09] MEDS: ADENOSINE IV SOLN 6 MG/2 ML VIAL IV PUSH (20:27)
--- NOTE | 2021-10-09 20:37 | ECG_ITS ---
Measurements Intervals [place] Rate: 115 P: 9 MA: 126 QRS: 62 QRSD: 95 T: 51 QT: 333 QTc: 462 Interpretive Statements SINUS OR ECTOPIC ATRIAL TACHYCARDIA BORDERLINE ST ABNORMALITY- INF/LAT LEADS BASELINE ARTIFACT- I, II, III, AVR, AVL, AVF, V1-V6 ABNORMAL ECG Electronically Signed On 10-09-2021 21:10:50 CANS VACUUM TESTER by Ruben Bloom D.O.
--- NOTE | 2021-10-09 20:49 | ED.NEUROSD ---
HPI - Neuro Symptoms/Deficit General Source: patient <Genaro Eugene MD - Last Filed: 10/10/21 05:07> Mode of arrival: EMS <Genaro Eugene MD - Last Filed: 10/10/21 05:07> Limitations: no limitations <Genaro Eugene MD - Last Filed: 10/10/21 05:07> History of Present Illness HPI Narrative: 61-year-old man with a history of peripheral vascular disease brought to the emergency department by EMS for left arm and leg weakness and numbness. Patient states his symptoms started about 5:00 p.m.. His family urged him to the emergency department but he did not given until 3 hours after the symptoms started. On arrival his heart rate was 180. Patient states he is having no chest pain, shortness of breath, nausea, vomiting, headache, visual changes, fever, sore throat, cough or cold symptoms, or dysuria. He denies history of prior stroke. <Genaro Eugene MD - Last Filed: 10/10/21 05:07> Onset (ago): hour(s) (3) <Genaro Eugene MD - Last Filed: 10/10/21 05:07> Last Observed Normal: 17:00 <Genaro Eugene MD - Last Filed: 10/10/21 05:07> Timing confirmed by: family member <Genaro Eugene MD - Last Filed: 10/10/21 05:07> Location: left arm and left leg <Genaro Eugene MD - Last Filed: 10/10/21 05:07> History of same: No <Genaro Eugene MD - Last Filed: 10/10/21 05:07> Severity: severe <Geanro Eugene MD - Last Filed: 10/10/21 05:07> Quality: weak, numb and constant <Genaro Eugene MD - Last Filed: 10/10/21 05:07> Relieving factors: none <Genaro Eugene MD - Last Filed: 10/10/21 05:07> Exacerbating factors: none <Genaro Eugene MD - Last Filed: 10/10/21 05:07> Context: sudden onset <Genaro Eugene MD - Last Filed: 10/10/21 05:07> On Anticoagulants: No <Genaro Eugene MD - Last Filed: 10/10/21 05:07> Associated symptoms: denies other symptoms <Genaro Eugene MD - Last Filed: 10/10/21 05:07> Treatments Prior to Arrival: none <Genaro Eugene MD - Last Filed: 10/10/21 05:07> Related Data Home Medications: Home Medications Medication Instructions Recorded Confirmed No Home Medications 10/09/21 10/09/21 <Genaro Eugene MD - Last Filed: 10/10/21 05:07> Allergies/Adverse Reactions: Allergies Allergy/AdvReac Type Severity Reaction Status Date / Time No Known Allergies Allergy Unknown Verified 10/09/21 20:47 <Genaro Eugene MD - Last Filed: 10/10/21 05:07> Review of Systems Review of Systems: All systems reviewed & are unremarkable except as noted in HPI and below <Genaro Eugene MD - Last Filed: 10/10/21 05:07> Constitutional: Constitutional: Reports anorexia, Denies chills and Denies fever(s) <Genaro Eugene MD - Last Filed: 10/10/21 05:07> Eyes: Eyes: Denies blurry vision, Denies change in vision and Denies diplopia <Genaro Eugene MD - Last Filed: 10/10/21 05:07> ENT: Denies dysphagia, Denies otalgia, Denies nasal congestion, Denies nasal discharge and Denies sore throat <Genaro Eugene MD - Last Filed: 10/10/21 05:07> Cardiovascular: Cardiovascular: Denies chest pain, Denies diaphoresis and Reports rapid heart rate <Genaro Eugene MD - Last Filed: 10/10/21 05:07> Respiratory: Respiratory: Denies cough and Denies dyspnea <Genaro Eugene MD - Last Filed: 10/10/21 05:07> Gastrointestinal: Gastrointestinal: Denies abdominal pain, Denies melena, Denies hematochezia, Denies diarrhea, Denies nausea and Denies vomiting <Genaro Eugene MD - Last Filed: 10/10/21 05:07> Genitourinary: Genitourinary: Denies hematuria, Denies dysuria and Denies urinary frequency <Genaro Eugene MD - Last Filed: 10/10/21 05:07> Musculoskeletal: Musculoskeletal: Denies arthralgias and Denies joint swelling <Genaro Eugene MD - Last Filed: 10/10/21 05:07> Comments: Tailbone pain after a fall from his wheelchair ten day
[2021-10-09 20:50] LABS: Hematocrit 42.3 % (40.0-54.0); Hemoglobin 14.4 g/dL (14.0-18.0); Mean Corpuscular Hemoglobin 33.5 pg (27.0-31.0); Mean Corpuscular Volume 98.4 fL (78.0-102.0); Mean Platelet Volume 11.3 fl (8.7-11.0); Platelet Count Result 281 K/mm3 (150-420)
[2021-10-09] MEDS: ONDANSETRON INJ 4 MG/2 ML VIAL IV PUSH (20:50)
[2021-10-09 21:03] LABS: Partial Thromboplastin Time 30.8 SEC (23.90-30.70)
[2021-10-09 21:04] LABS: Alanine Aminotransferase 33 U/L (16-63); Albumin Level 2.9 g/dL (3.4-5.0); Alkaline Phosphatase 124 U/L (46-116); Anion Gap 18 mmol/L (8-16); Aspartate Amino Transferase 40 U/L (15-37); Bilirubin,Total 2.2 mg/dL (0.00-1.00); Blood Urea Nitrogen 43 mg/dL (7-18); Calcium 9.6 mg/dL (8.5-10.1); Carbon Dioxide 20 mmol/L (21-32); Chloride 88 mmol/L (98-108); Estimated Glomerular Filt Rate 33; Glucose 120 mg/dL (70-99); Osmolality Calculated 273 mOsm/kg (285-295); Potassium 4.4 mmol/L (3.5-5.1); Sodium 126 mmol/L (136-145); Total Protein 7.9 g/dL (6.4-8.2)
[2021-10-09 21:07] LABS: Lactic Acid Reflex 6.4 mmol/L (0.4-2.0)
[2021-10-09 21:07] LABS: Ethanol < 3 mg/dL (0-6); Troponin I 965.4 ng/L (0.00-60.4)
[2021-10-09 21:08] LABS: Band Neutrophils Percent 0 % (0-6); Basophils Absolute Manual 0.23 K/mm3 (0-0.1); Basophils Percent Manual 1 % (0-1); Eosinophils Percent Manual 0 % (1-6); Lymphocytes Absolute Manual 1.38 K/mm3 (1.1-4.5); Lymphocytes Percent Manual 6 % (18-44); Monocytes Absolute Manual 3.68 K/mm3 (0.1-0.90); Monocytes Percent Manual 16 % (3-9); Neutrophils Absolute Manual 17.71 K/mm3 (1.3-6.7); Neutrophils Percent Manual 77 % (46-73); Platelet Estimate Adequate (Adequate)
--- NOTE | 2021-10-09 21:20 | PC.NURSE ---
Nuero check increased left hand and leg movement.
[2021-10-09 22:06] LABS: Add Urine Microscopic? YES; Appearance Urine Clear (Clear); Bilirubin Urine Negative (Negative); Blood Urine 2+ (Negative); Color Urine Light Yellow (Yellow); Glucose Urine UA Negative (Negative); Ketones Urine Negative (Negative); Leukocyte Esterase Ur Negative LEU/UL (Negative); Nitrate Urine Negative (Negative); Protein Urine Trace (Negative); Specific Grav Ur <= 1.005 (1.010-1.020)
[2021-10-09 22:12] LABS: SARS-CoV-2 Ag Negative (Negative)
[2021-10-09 22:12] LABS: Bacteria Urine None seen /hpf; Squamous Epithelial Cell Urine None seen /hpf (Few); WBC Urine 0-3 /hpf (0-3)
[2021-10-09 22:13] LABS: Amphetamine Screen Urine Negative (Negative); Barbiturate Screen Urine Negative (Negative); Benzodiazepines Screen Urine Negative (Negative); Cannabinoid Screen Urine Positive (Negative); Cocaine Screen Urine Negative (Negative); Methadone Screen Urine Negative (Negative); Opiate Screen Urine Negative (Negative); Phencyclidine Screen Urine Negative (Negative)
--- NOTE | 2021-10-09 22:13 | PC.NURSE ---
[facility] Dr. Bravo returned call to [facility] ERP Dr Eugene. Informed pt cannot be accepted. No further orders or interventions at this time.
[2021-10-09] MEDS: ASPIRIN 81 MG CHEWABLE TABLET 324 MG PO (22:34)
--- NOTE | 2021-10-09 22:47 | PC.NURSE ---
Call made to [facility] for beds available. ERP Dr Eugene spoke c neurologist Dr Manuel Daniels who accepted for transfer as soon as a bed is available within the system. Pt placed on wait list.
[2021-10-09] MEDS: THIAMINE HCL 200 MG/2 ML VIAL 100 MG IV PUSH (23:08)
--- NOTE | 2021-10-09 23:08 | PC.NURSE ---
Call placed directly to [facility] for bed and possible transfer to Vascular surgeon. Pt has hx of being at [facility] in the past yr. for PVD and having his last AKA surgery done here. Awaiting to speak c vascular MD and call back for bed availability.
[2021-10-09 23:57] LABS: Lipase 41 U/L (73-393); Magnesium 2.1 mg/dL (1.8-2.4)
[2021-10-09 23:58] LABS: Lactic Acid Reflex 2.3 mmol/L (0.4-2.0); Troponin I 627.4 ng/L (0.00-60.4)
[2021-10-10] VITALS (15 sets, daily range): BP systolic 75–158; BP diastolic 58–86; PULSE 100–126; RESP 16–22; TEMP 36.3–37.2; O2SAT 92–100; BMI 30.4
[2021-10-10] MEDS: SODIUM CHLORIDE 0.9% IV 1,000 ML 30 ML IV CONT (00:20)
--- NOTE | 2021-10-10 02:13 | PC.NURSE ---
Pt is resting comfortably and breathing unlabored and evenly. RN rotated pillow from underneath pt's right side to left side. Call light within reach and no other requests at this time.
[2021-10-10 02:38] LABS: Reflex Lactic Acid Yes or No Add Lactic
[2021-10-10 03:18] LABS: Hematocrit 38.5 % (40.0-54.0); Hemoglobin 13.5 g/dL (14.0-18.0); Mean Corpuscular HGB Conc 35.1 g/dL (32.0-36.0); Mean Corpuscular Hemoglobin 34.3 pg (27.0-31.0); Mean Corpuscular Volume 97.7 fL (78.0-102.0); Mean Platelet Volume 10.4 fl (8.7-11.0); Platelet Count Result 234 K/mm3 (150-420); Red Blood Count 3.94 M/mm3 (4.70-6.10); Red Cell Distribution Width 11.9 % (11.6-14.4); White Blood Count 16.1 K/mm3 (4.8-10.8)
[2021-10-10 03:33] LABS: Band Neutrophils Percent 0 % (0-6); Basophils Percent Manual 0 % (0-1); Eosinophils Percent Manual 0 % (1-6); Lymphocytes Absolute Manual 1.93 K/mm3 (1.1-4.5); Lymphocytes Percent Manual 12 % (18-44); Monocytes Absolute Manual 1.93 K/mm3 (0.1-0.90); Monocytes Percent Manual 12 % (3-9); Neutrophils Absolute Manual 12.23 K/mm3 (1.3-6.7); Neutrophils Percent Manual 76 % (46-73); Platelet Estimate Adequate (Adequate)
[2021-10-10 03:39] LABS: Lactic Acid 1.9 mmol/L (0.4-2.0)
[2021-10-10 03:43] LABS: Alanine Aminotransferase 34 U/L (16-63); Albumin Level 2.6 g/dL (3.4-5.0); Alkaline Phosphatase 105 U/L (46-116); Anion Gap 10 mmol/L (8-16); Aspartate Amino Transferase 36 U/L (15-37); Bilirubin,Total 1.7 mg/dL (0.00-1.00); Blood Urea Nitrogen 34 mg/dL (7-18); Calcium 8.7 mg/dL (8.5-10.1); Carbon Dioxide 27 mmol/L (21-32); Chloride 95 mmol/L (98-108); Estimated Glomerular Filt Rate > 60; Glucose 104 mg/dL (70-99); Osmolality Calculated 281 mOsm/kg (285-295); Potassium 3.4 mmol/L (3.5-5.1); Sodium 132 mmol/L (136-145); Total Protein 6.7 g/dL (6.4-8.2)
[2021-10-10 03:44] LABS: Troponin I 550.7 ng/L (0.00-60.4)
--- NOTE | 2021-10-10 03:44 | PC.NURSE ---
erp notified of elevated troponin of 550.7
[2021-10-10 05:00] LABS: Glucose Point of Care 96 mg/dl (65-105)
[2021-10-10] MEDS: DEXTROSE 5%/0.9% SOD CHL 1,000 ML 100 ML IV CONT ×2 (05:15→16:00)
[2021-10-10] MEDS: KCL 20 MEQ/SW 100 ML 100 ML 50 MEQ IVPB (05:16)
--- NOTE | 2021-10-10 05:36 | PC.NURSE ---
Genaro from [facility] called back for updates, report given, still no bed available but will keep pt on list.
--- NOTE | 2021-10-10 06:03 | PC.NURSE ---
Patient c/o burning at IV site. KCL decreased to 40. Patient alert and oriented x3. Former smoker. Admits to drinking 3 to 4 beers a day. Usually able to transfer self to and from wheelchair.. stated he did fall f last week when reaching down for something he had dropped.His wc flipped over. Resulted in bruising and pain to he back and tailbone. Oriented to room and surrounding. Call light in reach. Remains NPO at this time
[2021-10-10] MEDS: ASPIRIN 81 MG CHEWABLE TABLET 162 MG PO (08:53)
[2021-10-10] MEDS: CLOPIDOGREL BISULFATE 75 MG TABLET PO (08:53)
[2021-10-10] MEDS: PANTOPRAZOLE SODIUM IV 40 MG VIAL IV PUSH (08:54)
[2021-10-10 11:57] LABS: Thyroid Stimulating Hormone Reflex 1.35 u/IU/mL (0.36-3.74)
[2021-10-10 12:22] LABS: Glucose Point of Care 116 mg/dl (65-105)
--- NOTE | 2021-10-10 13:30 | ADMGEN ---
This patient, Jack De Oliveira, was changed from ED hold to full admission, 2nd Floor Room 206-1. Patient/family oriented to hospital policies and general routines including ID bracelet, bed and alarms, visiting hours, pain management, procedures, bathroom and other care routines, personal items, smoking policy, room service/diet, and visiting hours. Information on how to activate the Rapid Response Team has been discussed. Patient/Family are encouraged to report perceived risks to care and to ask questions if they do not understand what they are told or what they should do.
--- NOTE | 2021-10-10 13:41 | PM.IMHP ---
H&P: HPI History of Present Illness Date/Time: 10/10/21 13:41 this is a 61-year-old male who presented to our emergency department to be evaluated for CVA. This patient was ER hold on10/09/2021 at 20:49. there was no bed available so this patient became inpatient on 10/10/2021 at 13:43. the care of this patient will be managed by the ER doctor and assist by hospitalist. This patient is requiring a neurovascular surgeon, there is no beds available at outside hospitals at this time. Patient has been evaluated by ED doctor today, refer to his notes. 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 History of revascularization procedure of lower extremity Social History Social History Smoking status: Unknown if ever smoked Alcohol intake: current Drinks per week: 70 Substance use: unknown Sexual Orientation (if Verbalized by the Patient): Straight or Heterosexual Spiritual care concerns: No Meds Home Medications and Allergies Home Medications Medication Instructions Recorded Confirmed Type No Home Medications 10/09/21 10/09/21 History Allergies Allergy/AdvReac Type Severity Reaction Status Date / Time No Known Allergies Allergy Unknown Verified 10/09/21 20:47 Vital Signs Vital Signs - 24 hr 10/09/21 20:20 10/09/21 20:24 10/09/21 20:45 Temperature 99.4 F Pulse Rate 180 H 180 H 116 H Respiratory Rate 16 16 16 Blood Pressure 83/62 L 83/62 L 101/73 Pulse Oximetry 96 100 99 10/09/21 21:00 10/09/21 21:28 10/09/21 21:50 Temperature Pulse Rate 118 H 111 H 119 H Respiratory Rate 16 16 16 Blood Pressure 100/78 92/73 L 87/63 L Pulse Oximetry 99 97 95 10/09/21 22:00 10/09/21 22:10 10/09/21 22:40 Temperature Pulse Rate 111 H 109 H Respiratory Rate 16 16 Blood Pressure 97/72 L 100/75 Pulse Oximetry 98 97 99 10/09/21 23:10 10/09/21 23:27 10/09/21 23:40 Temperature Pulse Rate 102 H 104 H 103 H Respiratory Rate 18 16 Blood Pressure 67/55 L 69/57 L 75/54 L Pulse Oximetry 98 97 10/10/21 00:00 10/10/21 01:04 10/10/21 02:10 Temperature 97.3 F L Pulse Rate 104 H 102 H 100 Respiratory Rate 20 20 16 Blood Pressure 140/79 133/81 141/74 H Pulse Oximetry 97 98 100 10/10/21 03:07 10/10/21 04:16 10/10/21 05:22 Temperature Pulse Rate 104 H 103 H 107 H Respiratory Rate 18 20 22 H Blood Pressure 135/72 154/63 H 158/79 H Pulse Oximetry 94 95 99 10/10/21 06:08 10/10/21 06:09 10/10/21 08:00 Temperature 98.8 F 98.3 F Pulse Rate 109 H 109 H 110 H Respiratory Rate 18 18 17 Blood Pressure 153/64 H 85/65 L Pulse Oximetry 98 98 98 10/10/21 10:45 10/10/21 10:50 Temperature Pulse Rate Respiratory Rate Blood Pressure 75/58 L 140/59 L Pulse Oximetry H&P: Results Labs Labs: Short CBC 10/09/21 10/10/21 Range/Units 20:35 03:14 WBC 23.0 H* 16.1 H (4.8-10.8) K/mm3 Hgb 14.4 13.5 L (14.0-18.0) g/dL Hct 42.3 38.5 L (40.0-54.0) % Plt Count 281 234 (150-420) K/mm3 BMP 10/09/21 10/10/21 20:35 03:14 Sodium 126 L 132 L Potassium 4.4 3.4 L Chloride 88 L 95 L Carbon Dioxide 20 L 27 BUN 43 H 34 H Creatinine 2.07 H 1.17 Glucose 120 H 104 H Calcium 9.6 8.7 Cardiac Enzymes 10/09/21 10/09/21 10/10/21 Range/Units 20:35 23:32 03:14 Troponin I 965.4 H* 627.4 H* 550.7 H* (0.00-60.4) ng/L Liver Function 10/09/21 10/10/21 Range/Units 20:35 03:14 Total Bilirubin 2.2 H 1.7 H (0.00-1.00) mg/d
--- NOTE | 2021-10-10 17:40 | PC.NURSE ---
pt status changed to inpatient.
[2021-10-10] MEDS: ENOXAPARIN 40 MG/0.4 ML SYRINGE SUB-Q (17:43)
[2021-10-10] MEDS: LORazepam INJ (*CRX) 2 MG/ML VIAL 0.5 MG IV PUSH (17:44)
[2021-10-10 18:07] LABS: Glucose Point of Care 106 mg/dl (65-105)
--- NOTE | 2021-10-10 20:25 | PC.NURSE ---
notified of elevated pulse rate. Pulse running in the 120s. notified of current blood pressure. No new orders at this time. stated he didn't want to give him anything that would lower the blood pressure and with his blocked carotid arteries could cause a stroke.
[2021-10-11] VITALS (15 sets, daily range): BP systolic 129–172; BP diastolic 53–75; PULSE 108–171; RESP 15–22; TEMP 37–37.7; O2SAT 91–94
[2021-10-11] MEDS: LORazepam INJ (*CRX) 2 MG/ML VIAL 0.5 MG IV PUSH (00:23)
[2021-10-11] MEDS: DEXTROSE 5%/0.9% SOD CHL 1,000 ML 100 ML IV CONT ×2 (01:05→11:27)
--- NOTE | 2021-10-11 01:10 | PC.NURSE ---
[facility] called for update on patient. No bed available @ this time but will keep him on their wait list.
[2021-10-11 05:15] LABS: Hematocrit 33.9 % (40.0-54.0); Hemoglobin 11.1 g/dL (14.0-18.0); Mean Corpuscular HGB Conc 32.7 g/dL (32.0-36.0); Mean Corpuscular Hemoglobin 32.7 pg (27.0-31.0); Mean Platelet Volume 10.7 fl (8.7-11.0); Platelet Count Result 226 K/mm3 (150-420); Red Blood Count 3.39 M/mm3 (4.70-6.10); Red Cell Distribution Width 12.2 % (11.6-14.4); White Blood Count 11.2 K/mm3 (4.8-10.8)
[2021-10-11 05:34] LABS: Alanine Aminotransferase 38 U/L (16-63); Alkaline Phosphatase 118 U/L (46-116); Anion Gap 9 mmol/L (8-16); Aspartate Amino Transferase 95 U/L (15-37); Bilirubin,Total 1.9 mg/dL (0.00-1.00); Blood Urea Nitrogen 14 mg/dL (7-18); Carbon Dioxide 25 mmol/L (21-32); Chloride 102 mmol/L (98-108); Estimated Glomerular Filt Rate > 60; Glucose 101 mg/dL (70-99); Magnesium 2.1 mg/dL (1.8-2.4); Osmolality Calculated 282 mOsm/kg (285-295); Potassium 2.7 mmol/L (3.5-5.1); Sodium 136 mmol/L (136-145); Total Protein 5.9 g/dL (6.4-8.2)
[2021-10-11 05:35] LABS: Troponin I 306.2 ng/L (0.00-60.4)
--- NOTE | 2021-10-11 05:40 | PC.NURSE ---
Lab called to report a critical troponin value of 306.2. Dr. Rdz notified of test results and no new orders at this time.
--- NOTE | 2021-10-11 06:46 | ECG_ITS ---
Measurements Intervals [place] Rate: 174 P: ND: 0 QRS: 108 QRSD: 176 T: 7 QT: 264 QTc: 450 Interpretive Statements SUPRAVENTRICULAR TACHYCARDIA ST-T WAVE ABNORMALITY IN ANTEROLATERAL LEADS- CONSIDER ISCHEMIA OR RATE RELATED BASELINE WANDER- II, III, V4-V6 ABNORMAL ECG Electronically Signed On 10-11-2021 7:59:47 ANESTHESIOLOGY PHYSICIAN ASSISTANT by Rubne Bloom D.O.
--- NOTE | 2021-10-11 06:50 | PC.NURSE ---
Dr. Rdz here to see patient; Pt given adenosine 6 mg IVP as ordered. Respiratory therapy here and doing an EKG on patient.
[2021-10-11] MEDS: ADENOSINE IV SOLN 6 MG/2 ML VIAL IV PUSH ×3 (06:59→14:26)
--- NOTE | 2021-10-11 07:11 | PC.NURSE ---
Pt's heart rate shows that pt is in SVT; Dr. Rdz notified and orders were received and noted.
--- NOTE | 2021-10-11 07:46 | PCSTNOTE ---
This patient was asleep when I arrived; therapist and nurse attempted to awaken patient. When he was awake, he refused water per straw, applesauce, and pills. Attempts to encourage patient to take in items offered were consistently refused. Attempt was terminated. Nurse reports patient has been taking sips of water well but had exhibited some choking on pills. Nursing will attempt again at a later time.
[2021-10-11] MEDS: PANTOPRAZOLE SODIUM IV 40 MG VIAL IV PUSH (07:48)
--- NOTE | 2021-10-11 08:36 | PC.NURSE ---
heart rate consistently elevated above 160, hospitalist notified
--- NOTE | 2021-10-11 09:10 | PM.IMHP ---
H&P: HPI History of Present Illness Date/Time: 10/11/21 09: 13:41 this is a 61-year-old male who presented to our emergency department to be evaluated for CVA. This patient was ER hold on10/09/2021 ,there was no bed available so this patient became inpatient . This patient is requiring a neurovascular surgeon and card folder. Patient had medical history of hypertension, hyperlipidemia, leg pain, PVD, bilateral below the knee amputation ,PVD, alcohol abuse and history of CVA. Patient is a poor historian and is currently hallucinating due to DTs. On admission WBC 23.0, hemoglobin 14.4 hematocrit 42.3 platelets 281, sodium 126, potassium 4.4, BUN 43, creatinine 2.07, glucose 120,lactic acid 2.3, magnesium 2.1, troponin 627.4, UA with a protein, toxicology positive for Cannabinoids. CT of the head did not indicate any new finding. CT of the neck indicates carotid occlusion. Patient waiting on bed for transfer.Refer to ER notes concerning transfer. episode- according to nursing staff patient had a episode of svt adenosine 6 mg given. refer to er physician notes 08:30 informed that patient with SVT adenosine6 mg given and started on metoprolol 2.5 mg q6h iv, discussed with Dr. Eugene Speech therapist attempted to complete a swallow eval, patient lethargic and uncooperative. 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 History of revascularization procedure of lower extremity Social History Social History Smoking status: Former smoker Tobacco type: cigarettes Smokeless tobacco user: chewing tobacco Second hand tobacco smoke exposure: Yes Alcohol intake: current Drinks per week: 70 Substance use: current Substance use type: marijuana Sexual Orientation (if Verbalized by the Patient): Straight or Heterosexual Spiritual care concerns: No Meds Home Medications and Allergies Home Medications Medication Instructions Recorded Confirmed Type No Home Medications 10/09/21 10/09/21 History Allergies Allergy/AdvReac Type Severity Reaction Status Date / Time No Known Allergies Allergy Unknown Verified 10/09/21 20:47 Vital Signs Vital Signs - 24 hr 10/10/21 10:45 10/10/21 10:50 10/10/21 13:34 Temperature Pulse Rate 111 H Respiratory Rate Blood Pressure 75/58 L 140/59 L Pulse Oximetry 94 10/10/21 14:11 10/10/21 16:00 10/10/21 20:00 Temperature 98.3 F 98.9 F Pulse Rate 111 H 117 H 126 H Respiratory Rate 17 20 Blood Pressure 143/86 H 136/66 Pulse Oximetry 93 92 10/11/21 00:00 10/11/21 04:00 10/11/21 07:00 Temperature 98.6 F 99.8 F H Pulse Rate 130 H 116 H 122 H Respiratory Rate 20 16 15 Blood Pressure 133/61 145/56 H 134/60 Pulse Oximetry 93 92 91 Exam Narrative: GENERAL: Confused with hallucinating in uncontrollable hiccups HEAD: normocephalic, atraumatic. EYES: constricted pupil EARS: External ears normal, auditory canals clear and without drainage, TMs normal without perforation. Hearing grossly intact. NOSE: External nose normal with no obvious nasal discharge, nares without redness, no rhinorrhea. THROAT: Mucous membranes moist, posterior pharynx clear. NECK: Neck supple, non-tender without lymphadenopathy, masses or thyromegaly. CARDIOVASCULAR: Irregular rate and rhythm RESPIRATORY: Clear to auscultation. Breath sounds equal bilaterally. No wheezes, rales, or rhon
[2021-10-11] MEDS: KCL 20 MEQ/SW 100 ML 100 ML 50 MEQ IVPB ×2 (09:28→11:25)
[2021-10-11] MEDS: ALBUMIN HUMAN 25% 25 GM/100 ML 100 ML IVPB (10:00)
[2021-10-11] MEDS: METOPROLOL TARTRATE INJ 5 MG/5 ML VIAL 2.5 MG IV PUSH (10:01)
[2021-10-11] MEDS: LORazepam INJ (*CRX) 2 MG/ML VIAL 1 MG IV PUSH ×2 (10:02→16:52)
--- NOTE | 2021-10-11 11:36 | PC.NURSE ---
Blood sugar 186 on patients dexcom device.
[2021-10-11 11:47] LABS: Ammonia < 10 umol/L (11-32)
--- NOTE | 2021-10-11 12:44 | P.TS_ITS ---
Transfer Discharge Sum: Prov Provider Date of admission: 10/10/21 13:30 Primary care physician: UNKNOWN,DOCTOR Admitting clinician: Олег Rzd MD DS: Admitting Diagnosis Discharge Date 10/11/21 Admitting Diagnosis cva and SVT DS: Discharge Diagnosis Discharge Diagnosis (1) Acute CVA (cerebrovascular accident): Code(s): I63.9 - Cerebral infarction, unspecified Status: Acute Assessment and Plan: * History of CVA * Secondary to carotid artery stenosis * CT of the head do not indicate any new infarcts * mri pending * Started on atorvastatin, aspirin and Plavix * waiting on transfer to an outside hospital for higher level of care * continue neuro checks (2) SVT (supraventricular tachycardia): Code(s): I47.1 - Supraventricular tachycardia Status: Acute Assessment and Plan: * on arrival indicates tachycardia with a heart rate of 115 EKG . EKG from today indicates SVT with a heart rate of 174 * Patient received adenosine 6 mg, history and 50 mg on metoprolol IV patient experienced another episode of SVT received another adenosine 6 mg and placed on metoprolol 2.5 IV q.6 hours. Will transition to p.o. once swallow eval is completed . * Continue telemetry . * waiting for transfer for consult with Cardiology (3) Acute renal failure: Qualifiers: Acute renal failure type: unspecified Qualified Code(s): N17.9 - Acute kidney failure, unspecified Code(s): N17.9 - Acute kidney failure, unspecified Status: Acute Assessment and Plan: * BUN/Cr 43/2.07 34/1.17, 14/0.78, improving baseline BUN and creatinine within normal limits * avoid nephrotoxic * will renal dose medication (4) Carotid artery stenosis: Qualifiers: Laterality: bilateral Qualified Code(s): I65.23 - Occlusion and stenosis of bilateral carotid arteries Code(s): I65.29 - Occlusion and stenosis of unspecified carotid artery Status: Acute Assessment and Plan: * CTA of the head and neck revealed right internal carotid 95% stenosis and left internal carotid 90% stenosis. * waiting for transfer to outside hospital for specialty consult. (5) Elevated troponin: Code(s): R77.8 - Other specified abnormalities of plasma proteins Status: Acute Assessment and Plan: * troponin 965.4>627.4>550.7>306.2 * Routine indicate sinus tach. heart rate of 115, repeat SVT with heart rate of 174 * awaiting transfer to a hospital with higher level care and consult with Cardiology * . continue telemetry (6) Above knee amputation of right lower extremity: Code(s): S78.111A - Complete traumatic amputation at level between right hip and knee, initial encounter Status: Acute (7) Alcohol abuse: Code(s): F10.10 - Alcohol abuse, uncomplicated Status: Acute Assessment and Plan: * implemented CIWA * Continue Ativan * Normal ammonia pending (8) Peripheral vascular disease: Onset Date: 07/24/12 Code(s): I73.9 - Peripheral vascular disease, unspecified Status: Acute Assessment and Plan: * Continue statin and Plavix (9) Electrolyte imbalance: Code(s): E87.8 - Other disorders of electrolyte and fluid balance, not elsewhere classified Status: Acute Assessment and Plan: * patient with chronic hyponatremia * possibly secondary to alcohol abuse * NA 126>132 * K 4.4>3.4>2.7 * will replace with supplement * Continue daily continue daily labs (10) E
--- NOTE | 2021-10-11 12:44 | PM.TDS ---
Transfer Discharge Sum: Prov Provider Date of admission: 10/10/21 13:30 Primary care physician: UNKNOWN,DOCTOR Admitting clinician: Олег Rdz MD DS: Admitting Diagnosis Discharge Date 10/11/21 Admitting Diagnosis cva and SVT DS: Discharge Diagnosis Discharge Diagnosis (1) Acute CVA (cerebrovascular accident): Code(s): I63.9 - Cerebral infarction, unspecified Status: Acute Assessment and Plan: History of CVA Secondary to carotid artery stenosis CT of the head do not indicate any new infarcts mri pending Started on atorvastatin, aspirin and Plavix waiting on transfer to an outside hospital for higher level of care continue neuro checks (2) SVT (supraventricular tachycardia): Code(s): I47.1 - Supraventricular tachycardia Status: Acute Assessment and Plan: on arrival indicates tachycardia with a heart rate of 115 EKG . EKG from today indicates SVT with a heart rate of 174 Patient received adenosine 6 mg, history and 50 mg on metoprolol IV patient experienced another episode of SVT received another adenosine 6 mg and placed on metoprolol 2.5 IV q.6 hours. Will transition to p.o. once swallow eval is completed . Continue telemetry . waiting for transfer for consult with Cardiology (3) Acute renal failure: Qualifiers: Acute renal failure type: unspecified Qualified Code(s): N17.9 - Acute kidney failure, unspecified Code(s): N17.9 - Acute kidney failure, unspecified Status: Acute Assessment and Plan: BUN/Cr 43/2.07 34/1.17, 14/0.78, improving baseline BUN and creatinine within normal limits avoid nephrotoxic will renal dose medication (4) Carotid artery stenosis: Qualifiers: Laterality: bilateral Qualified Code(s): I65.23 - Occlusion and stenosis of bilateral carotid arteries Code(s): I65.29 - Occlusion and stenosis of unspecified carotid artery Status: Acute Assessment and Plan: CTA of the head and neck revealed right internal carotid 95% stenosis and left internal carotid 90% stenosis. waiting for transfer to outside hospital for specialty consult. (5) Elevated troponin: Code(s): R77.8 - Other specified abnormalities of plasma proteins Status: Acute Assessment and Plan: troponin 965.4>627.4>550.7>306.2 Routine indicate sinus tach. heart rate of 115, repeat SVT with heart rate of 174 awaiting transfer to a hospital with higher level care and consult with Cardiology . continue telemetry (6) Above knee amputation of right lower extremity: Code(s): S78.111A - Complete traumatic amputation at level between right hip and knee, initial encounter Status: Acute (7) Alcohol abuse: Code(s): F10.10 - Alcohol abuse, uncomplicated Status: Acute Assessment and Plan: implemented CIWA Continue Ativan Normal ammonia pending (8) Peripheral vascular disease: Onset Date: 07/24/12 Code(s): I73.9 - Peripheral vascular disease, unspecified Status: Acute Assessment and Plan: Continue statin and Plavix (9) Electrolyte imbalance: Code(s): E87.8 - Other disorders of electrolyte and fluid balance, not elsewhere classified Status: Acute Assessment and Plan: patient with chronic hyponatremia possibly secondary to alcohol abuse NA 126>132 K 4.4>3.4>2.7 will replace with supplement Continue daily continue daily labs (10) Elevated liver enzymes: Code(s): R74.8 - Abnormal levels of other serum enzymes Status: Acute Assessment and Plan: possibly secondary to alcohol abuse Tbil>2.2>1.7>1.9, AST 40>36>95,ALT 33>34>38 will continue to monitor avoid hepatitis agent Transfer Discharge Sum: Med Medications Active and Home Medications: Home Medications No Home Medications 10/09/21 [History Confirmed 10/09/21] Transfer Discharge Sum: Hosp Hospital Course
--- NOTE | 2021-10-11 14:24 | PM.EVENT ---
Event Note Event Note Event Note: patient with svt another adenosine 6 mg given with metoprolol 5 mg one time.
[2021-10-11] MEDS: METOPROLOL TARTRATE INJ 5 MG/5 ML VIAL IV PUSH (14:51)
[2021-10-11 16:57] LABS: Glucose Point of Care 99 mg/dl (65-105)
--- NOTE | 2021-10-11 17:30 | PC.NURSE ---
Report given to [facility] EMS crew. All questions answered. PT transferred to [facility] for transport.
--- NOTE | 2021-10-11 17:46 | PC.NURSE ---
Called report to [facility]. Spoke with DAMARIS Horan.
--- NOTE | 2021-10-11 17:53 | PC.NURSE ---
Attempted to call both and Aldo, pt's son and daughter. Unable to reach either one with no voicemail available on either phone.
== END 2021-10-11 17:35 | disposition short-term general hospital (02) | DRG 64 ==
LOC: CHSED 23:22 → CHS2ND 10-10 04:51 → CHSED 10-10 13:57 → CHS2ND 10-10 13:57
PROVIDERS: Nurse Practitioner; Admitting Provider Internal Medicine Critical Care Medicine; Emergency Provider Emergency Medicine; Visit Provider Internal Medicine Critical Care Medicine
DX: I63.239 Cerebral infarction due to unspecified occlusion or stenosis of unspecified carotid artery (principal); A41.1 Sepsis due to other specified staphylococcus; I47.1 Supraventricular tachycardia; N17.9 Acute kidney failure, unspecified; E87.8 Other disorders of electrolyte and fluid balance, not elsewhere classified; I10 Essential (primary) hypertension; I73.9 Peripheral vascular disease, unspecified; E78.5 Hyperlipidemia, unspecified; R74.8 Abnormal levels of other serum enzymes; R77.8 Other specified abnormalities of plasma proteins; G83.24 Monoplegia of upper limb affecting left nondominant side; F10.10 Alcohol abuse, uncomplicated; Z89.612 Acquired absence of left leg above knee; Z89.611 Acquired absence of right leg above knee
CPT/HCPCS: 36415; 70450; 70496; 70498; 71045; 80053; 80307; 81001; 82140; 82948; 83605; 83690; 83735; 84443; 84484; 85025; 85027; 85730; 87040; 87147; 87186; 87426; 93005; 96361; 96365; 96366; 96375; 99285; A9270; C9113; C9803; J0153; J1650; J2060; J2405; J3411; J3480; J7030; J7042; P9047; Q9967